=== PATIENT | male | born 1940 | race Caucasian/White ===

== ENCOUNTER 2017-11-06 12:01 | Inpatient (IN) | payer MEDICARE, BC ==
[2017-11-06] MEDS ORDERED: Ondansetron HCl/PF 4 MG/2 ML Vial ONE (12:46)
[2017-11-06] MEDS ORDERED: Morphine 4 MG/ML Carpuject ONE ×3 (12:46→16:51)
[2017-11-06 12:57] LABS: #Basophils 0.1 thou/uL (0.0-0.2); #Lymphocytes 1.6 thou/uL (1.20-3.40); #Monocytes 0.4 thou/uL (0.11-0.59); #Neutrophils 5.8 thou/uL (1.40-6.50); %Basophils 1.2 % (0.0-1.0); %Eosinophils 0.2 % (0.0-10.0); %Lymphocytes 19.8 % (21.0-51.0); %Monocytes 5.4 % (0.0-10.0); %Neutrophils 73.5 % (42.0-75.0); Hemoglobin 16.1 g/dL (14.0-18.0); Mean Corpuscular HGB CONC 33.5 g/dL (32.0-36.0); Mean Corpuscular Hemoglobin 30.1 pg (27.0-31.0); Mean Corpuscular Volume 89.9 fl (80.0-94.0); Platelet Count 134 thou/uL (130-400); RBC Distribution Width 11.4 % (11.5-14.5); Red Blood Cell (RBC) Count 5.36 mill/uL (4.70-6.10); White Blood Cell (WBC) Count 7.9 thou/uL (4.8-10.8)
[2017-11-06 13:16] LABS: ALT (SGPT) 15 U/L (8-55); AST (SGOT) 40 U/L (5-34); Albumin 4.3 g/dL (3.4-4.8); Alkaline Phosphatase 77 U/L (40-150); Anion Gap 20 mmol/L (10-20); BUN (Urea Nitrogen) 11 mg/dL (8.4-25.7); Bilirubin, Total 0.9 mg/dL (0.2-1.2); Calc. Creatinine Clearance 0 mL/min (70-130); Carbon Dioxide 20 mmol/L (23-31); Chloride 101 mmol/L (98-107); Estimated GFR-MDRD 78; Globulin 3.3 g/dL (2.4-3.5); Glucose 140 mg/dL (83-110); Lipase 18 U/L (8-78); Potassium 4.1 mmol/L (3.5-5.1); Protein, Total 7.6 g/dL (5.8-8.1); Sodium 137 mmol/L (136-145)
--- NOTE | 2017-11-06 14:54 | CT ---
ABDOMEN AND PELVIS CT NONCONTRAST: CLINICAL HISTORY: Sudden onset back pain. FINDINGS: Extensive soft tissue mass formation present within the retroperitoneum as well as within the iliac c hains right greater than left compatible with diffuse adenopathy, limited in assessment by noncontras t CT imaging. There is no urolithiasis or obstructive uropathy. There is vascular calcification. T here is mild volume loss at the left lung base. Osseous structures reveal a prominent compression de formity at the low thoracic spine, age-indeterminate. There is marked enlargement of the prostate gl and abutting the bladder base. Bilateral fat-containing inguinal hernias are present, more prominent on the left. Evaluation is otherwise limited on the basis of noncontrast technique. IMPRESSION: Extensive adenopathy likely related to lymphoma. Recommend appropriate clinical management and follo augustinp. POS: JOSIAH
[2017-11-06 16:44] LABS: Lactic Acid 0.8 mmol/L (0.5-2.2)
[2017-11-06 17:31] VITALS: BMI 22.4
[2017-11-06] MEDS ORDERED: HYDROcodone/Acetaminophen 5/325 mg Tablet PO PRN ×3 (17:55→19:43)
[2017-11-06] MEDS ORDERED: Sodium Chloride 0.9% 1,000 ML IV SCH (17:55)
[2017-11-06] MEDS ORDERED: Ondansetron ODT 4 MG TAB SL PRN ×2 (17:55→19:43)
[2017-11-06] MEDS ORDERED: Ondansetron HCl/PF 4 MG/2 ML Vial IVP PRN (17:55)
[2017-11-06] MEDS ORDERED: Senokot 8.6 MG TAB PO PRN (19:43)
[2017-11-06] MEDS ORDERED: Bisacodyl 5 MG TAB PO PRN (19:43)
[2017-11-06] MEDS ORDERED: Dextrose 50% Abboject 50 ML SYRINGE SLOW IVP PRN (21:09)
[2017-11-06] MEDS ORDERED: Dextrose 5% in Water 1,000 ML IV PRN (21:09)
[2017-11-06] MEDS: Famotidine 20 MG TAB PO SCH (23:10)
[2017-11-06] MEDS: Docusate 100 MG CAP PO SCH (23:10)
--- NOTE | 2017-11-07 00:04 | HP ---
DATE OF SERVICE: 11/06/2017 CHIEF COMPLAINT: Back pain and abdominal pain. HISTORY OF PRESENT ILLNESS: The patient is a 77-year-old male with a past medical history of hypertension, hyperlipidemia, and diabetes, who presented to the [facility] ER with a 2 -month history of worsening lower back pain and several days worth of worsening abdominal pain. The patient had been seen his primary care physician located in [place], [place], who had been treating his back pain conservatively and tried steroid injections, thinking that he pulled a muscle when lifting heavy objects. The back pain never improved and then he also developed constipation over that time and some left lower quadrant abdominal pain for which he sought care at the ER today. In the ER, the patient had a CT scan of the abdomen and pelvis, which demonstrated extensive adenopathy, likely rel ated to lymphoma. It was also noted that the patient had a compression fracture in the lower thoraci c spine. The patient has been admitted for pain control and further workup of this possible new lymp jean-pierre. On physical examination, the patient is mildly tender to palpation in left lower quadrant and tenderness over the lower back, but it was otherwise unremarkable. The patient's notes that he lost 15-20 pounds in the past several months. LABORATORY DATA: 1. CBC: WBC 7.9, hemoglobin 16.1, hematocrit 48.1, platelets 134. 2. CMP: Sodium 137, potassium 4.1, chloride 101, bicarb 20, BUN 11, creatinine 0.94, glucose 140, c alcium 11.0, total bilirubin 0.9, AST 40, ALT 15, alkaline phosphatase 77, total protein 7.6, albumin 4.3. 3. Lipase 18. 4. Lactic acid 2.6. ASSESSMENT AND PLAN: 1. Intractable pain secondary to compression fracture and malignancy: The patient will be given IV pain regimen overnight. The patient had good results with morphine that he was dosed with in the ER and we will likely continue this. 2. Suspected lymphoma: We will try to arrange for the patient to have a biopsy tomorrow or as soon as possible to help get a tissue diagnosis, and the patient will also need to see Oncology. 3. Compression fracture: We will consult Neurosurgery. I suspect he may need a TLSO brace. 4. Hypertension: Continue home medications. 5. Diabetes: Continue home medications. Please see Dr. Penelope Osborn's dictation for the full history and physical, assessment and plan. I hav e discussed the case in detail with her and agree with her documentation.
--- NOTE | 2017-11-07 02:42 | HP-2 ---
CODE STATUS: FULL. PRIMARY CARE PHYSICIAN: Dr. Asencio. ATTENDING: Dr. Camacho. RESIDENT: Dr. Penelope Osborn. HISTORIAN: Patient. CHIEF COMPLAINT: Abdominal pain. HISTORY OF PRESENT ILLNESS: Patient is a 77-year-old male with past medical history of diabetes, hypertension, hyperlipidemia, and chronic constipation and back pain worsening, who presented with acute onset of intermittent abdominal pain that lasted about 30 to 60 minutes in duration, was located in the left lower quadrant. No associated fever. Patient does have chronic history of constipation and back pain started about 2 months ago, patient had a lifting injury and then a mechanical fall a month later. reports that the last couple of days pain has been worsening. It is so severe that the patient is unable to get out of bed on his own and ambulate. Patient has been seen by Dr. Asencio, PCP for back pain and constipation. Back pain attributed to pulled muscle. Patient also seen by GI specialist for constipation. Patient has been treated with [id number] medications and with great results. Currently, not suffering from constipation. Last BM was 2 days ago. Patient denies melena or hematochezia. No family history of colon cancer. Patient was originally seen in [facility] ER where they did a CT of the abdomen, which showed extensive adenopathy, likely related to lymphoma and a compression fracture. In the ER, was given morphine for pain. PAST MEDICAL HISTORY: 1. Diabetes mellitus. 2. Hypertension. 3. Hyperlipidemia. 4. BPH. PAST SURGICAL HISTORY: Left nipple cyst removal and back cyst removal. ALLERGIES: No known drug allergies. MEDICATIONS: 1. Lisinopril 2.5 mg. 2. Metformin 500 mg daily. 3. Simvastatin 10 mg daily. 4. Tamsulosin 0.4 mg. FAMILY HISTORY: Dad with diabetes. SOCIAL HISTORY: Patient was a former smoker, quit in 1979. Reports alcohol use of 2 glasses of wine nightly, but lately with abdominal pain has since quit drinking and no drug use in the past. Patient is retired, lives at home. Baseline functional status is working and completing ADLs on his own. REVIEW OF SYSTEMS: A 12-point review of systems was performed and found to be positive for those mentioned in the HPI as well as a 15 to 20 pound weight loss over the last year, recent mild cough and congestion. No shortness of breath. No nasal congestion or sore throat. No fever, pain, and tenderness of the back. PHYSICAL EXAMINATION: VITAL SIGNS: Blood pressure 156/80, pulse 66, respiratory rate 18, T-max 97.7, pulse ox 98% on room air, current weight 75 kilograms. GENERAL: Patient is alert and oriented x4, in no acute distress. He has been appropriately interactive. EYES: PERRLA, EOMI. Conjunctivae within normal limits. ENT: Oropharynx within normal limits. NECK: Supple, without lymphadenopathy. No supraclavicular lymphadenopathy noted. CARDIOVASCULAR: Regular rate and rhythm. No murmurs or gallops. Radial pulses 2+. RESPIRATORY: Normal effort, no retractions, clear to auscultation bilaterally. ABDOMEN: Soft with tenderness in the left lower quadrant with hypoactive bowel sounds. No rebound, mild guarding. EXTREMITIES: No clubbing, cyanosis, or edema. MUSCULOSKELETAL: Structure within normal limits. Tone within normal limits. BACK: With tenderness to palpation in the lumbar vertebral area around L3-L4. SKIN: Warm and dry. NEUROLOGIC: No focal deficits. GCS 15. PSYCHIATRIC: Appropriate. LABORATORY DATA: CBC: White blood cell count 7.9, hemoglobin 16.1, hematocrit 48.1, platelets 134. Chemistries: Sodium 137, potassium 4.1, chloride 101, bicarb 20, BUN 11, creatinine 0.94, glucose 140, calcium 11.0, total protein 7.6 , albumin 4.3, AST 40, ALT 15, alkaline phosphatase 77, total bilirubin 0.9. Lactic acid 2.6, which down trended to 0.8. Lipase 18. IMAGING: CT of abdomen showed extensive adenopathy, likely related to lymphoma. No acute obstruction noted. ASSESSMENT AND PLAN: 1. Suspected lymphoma - CT finding suggestive of extensive adenopathy. We will need biopsy for confirmation of diagnosis. We will consult IR for biopsy and official diagnosis. Patient with weight loss, constipation, hypercalcemia all of these things are added to the picture of possible neoplastic process. We will get SPEP and UPEP to consider multiple myeloma with fracture. We will give Fisher for pain control and consider morphine for breakthrough pain control. Plan to consult Oncology once diagnosis is made. This was discussed with family. 2. Back pain secondary to compression fracture, unsure etiology. The patient with recent trauma, which could be likely source for fracture, although concern for pathologic fracture. We will consult Neurosurgery and give pain meds. PT and OT if able to tolerate. 3. Hypercalcemia, likely secondary to #1. Patient's calcium actually just above normal range. 4. Diabetes mellitus. We will continue home metformin and at bedtime, Accu- Cheks and mild sliding scale insulin for uncontrolled blood sugars, and a diabetic diet. 5. Benign prostatic hypertrophy. We will continue home tamsulosin. 6. Hyperlipidemia. We will continue home simvastatin. 7. Constipation. We will give MiraLax daily, Colace b.i.d., Metamucil daily, and Senna p.r.n., likely constipation associated with extensive adenopathy. Encourage p.o. intake for hydration. DISPOSITION LENGTH OF HOSPITAL STAY: 2 to 3 days. Symptomatic medications will be provided. History and physical exam as well as management discussed with Dr. Piedda Camacho. RYAN
[2017-11-07] MEDS: HYDROcodone/Acetaminophen 5/325 mg Tablet PO PRN ×3 (03:42→14:59)
[2017-11-07 06:08] LABS: #Basophils 0.1 thou/uL (0.0-0.2); #Eosinphils 0.1 thou/uL (0.0-0.7); #Lymphocytes 1.9 thou/uL (1.20-3.40); #Monocytes 0.5 thou/uL (0.11-0.59); %Basophils 0.9 % (0.0-1.0); %Eosinophils 2.2 % (0.0-10.0); %Monocytes 8.1 % (0.0-10.0); %Neutrophils 59.9 % (42.0-75.0); Hemoglobin 13.3 g/dL (14.0-18.0); Mean Corpuscular HGB CONC 32.5 g/dL (32.0-36.0); Mean Corpuscular Hemoglobin 31.5 pg (27.0-31.0); Mean Corpuscular Volume 96.9 fl (80.0-94.0); Mean Platelet Volume 6.3 fL (7.4-10.4); PLT Morphology Comment Appears Decreased; Platelet Count 119 thou/uL (130-400); RBC Distribution Width 12.1 % (11.5-14.5); Red Blood Cell (RBC) Count 4.22 mill/uL (4.70-6.10); White Blood Cell (WBC) Count 6.6 thou/uL (4.8-10.8)
--- NOTE | 2017-11-07 06:09 | PDOC.FM ---
- Subjective Subjective: Mr. Reeder is feeling okay this morning, he is still constipated and has not had a BM in 3 days. His back pain is more controlled with the pain medications. He denies fever, chest pain, dyspnea. - Objective MAR Reviewed: Yes Vital Signs & Weight: Vital Signs (12 hours) Temp Pulse Resp BP Pulse Ox 11/07/17 04:43 97.6 F 59 L 17 155/85 H 96 11/07/17 00:54 97.9 F 59 L 16 100/63 95 11/06/17 21:47 97.9 F 60 16 134/75 94 L 11/06/17 20:00 97.9 F 60 16 94 L Weight Weight 75 kg I&O: 11/05/17 11/06/17 11/07/17 06:59 06:59 06:59 Intake Total 170 Balance 170 Result Diagrams: 11/07/17 05:14 11/07/17 05:14 <Jj Kelley - Last Filed: 11/07/17 07:37> - Objective Vital Signs & Weight: Vital Signs (12 hours) Temp Pulse Resp BP Pulse Ox 11/07/17 15:22 97.5 F L 70 16 171/92 H 96 11/07/17 12:05 97.9 F 62 16 146/77 H 95 11/07/17 08:00 98.1 F 54 L 16 107/66 96 11/07/17 04:43 97.6 F 59 L 17 155/85 H 96 Weight Weight 75 kg I&O: 11/06/17 11/07/17 11/08/17 06:59 06:59 06:59 Intake Total 1770 Balance 1770 Result Diagrams: 11/07/17 05:14 11/07/17 05:14 <Piedad Camacho - Last Filed: 11/07/17 16:41> Phys Exam - Physical Examination Constitutional: NAD HEENT: moist MMs, sclera anicteric Neck: no JVD, supple, full ROM Respiratory: no wheezing, no rales, no rhonchi, clear to auscultation bilateral Cardiovascular: RRR, no significant murmur, no rub Gastrointestinal: soft, non-tender, positive bowel sounds distended Musculoskeletal: no edema, pulses present Neurological: non-focal, normal sensation, moves all 4 limbs Psychiatric: normal affect, A&O x 3 <Warren,Jj - Last Filed: 11/07/17 07:37> Dx/Plan (1) Lymphoma Status: Suspected (2) Compression fracture Code(s): NIK1549 - Status: Acute (3) Hypercalcemia Code(s): E83.52 - HYPERCALCEMIA Status: Acute (4) Type 2 diabetes mellitus Status: Chronic (5) BPH (benign prostatic hyperplasia) Code(s): N40.0 - BENIGN PROSTATIC HYPERPLASIA WITHOUT LOWER URINRY TRACT SYMP Status: Chronic (6) Hyperlipidemia Code(s): E78.5 - HYPERLIPIDEMIA, UNSPECIFIED Status: Chronic (7) Constipation Code(s): K59.00 - CONSTIPATION, UNSPECIFIED Status: Acute - Plan Plan: 1) Suspected Lymphoma: CT finding suggestive of extensive adenopathy, weight loss, constipation, hypercalcemia We will need biopsy for confirmation of diagnosis, Consult IR this morning Also check UPEP, SPEP [place] for pain control Consult Oncology 2) Newly Diagnosed Compression Fracture: causing back pain, has been managed conservatively OP with meds and injections -Consult neurosurgery, appreciate recommendations -PT/OT if patient can tolerate -pain control 3) Hypercalcemia: likely secondary to #1 -check UPEP, SPEP 4) T2DM: Cont home metformin, Accuchecks, Mild SSI 5) BPH: Cont home tamsulosin 6) HLD: come home simvastatin 7) Constipation: Miralax daily, colace bid, metamucil daily, senna prn <Jj Kelley - Last Filed: 11/07/17 07:37> Attending Addendum - Attending Addendum I personally evaluated the patient and discussed the management with Dr. Kelley. I agree with the History, Examination, Assessment and Plan documented above with any addition or exceptions noted below. Patient will need further imaging of his back. Neurosurgery has been consulted. Oncology will also be consulted. Patient will need a biopsy to determine etiology of suspected malignancy. Continue pain medications. Will adjust bowel regimen to help with constipation. <Piedad Camacho - Last Filed: 11/07/17 16:41>
[2017-11-07 06:23] LABS: Anion Gap 12 mmol/L (10-20); BUN (Urea Nitrogen) 14 mg/dL (8.4-25.7); Calc. Creatinine Clearance 74 mL/min (70-130); Calcium 9.6 mg/dL (7.8-10.44); Carbon Dioxide 27 mmol/L (23-31); Chloride 102 mmol/L (98-107); Estimated GFR-MDRD 80; Glucose 114 mg/dL (83-110); Potassium 4.1 mmol/L (3.5-5.1); Sodium 137 mmol/L (136-145)
[2017-11-07] MEDS ORDERED: Gadobenate Dimeglumine 529 MG/1 ML (20ML VIAL) ONE (06:31)
[2017-11-07] MEDS ORDERED: GARLIC PO SCH (09:00)
[2017-11-07] MEDS: Calcium/Multivitamins W-Iron 1 TAB TAB PO SCH (09:14)
[2017-11-07] MEDS: Lactinex Tablet PO SCH (09:15)
[2017-11-07] MEDS: Fish Oil 1,000 MG CAP PO SCH (09:15)
[2017-11-07] MEDS: Lisinopril 2.5 MG TAB PO SCH (09:15)
[2017-11-07] MEDS: metFORMIN 500 MG TAB PO SCH (09:15)
[2017-11-07] MEDS: Famotidine 20 MG TAB PO SCH ×2 (09:16→22:24)
[2017-11-07] MEDS: Tamsulosin HCl 0.4 MG CAP PO SCH (09:16)
[2017-11-07] MEDS: Enoxaparin Sodium 40 MG/0.4 ML SYRINGE SC SCH (09:16)
[2017-11-07] MEDS: Polyethylene Glycol 3350 17 GM Packet PO SCH (09:16)
[2017-11-07] MEDS: Docusate 100 MG CAP PO SCH ×2 (09:16→22:24)
[2017-11-07] MEDS: Metamucil PACK PO SCH (09:16)
[2017-11-07] MEDS ORDERED: Bisacodyl 10 MG SUPP PR PRN (09:23)
[2017-11-07] MEDS ORDERED: Bisacodyl 10 MG SUPP PR SCH (09:30)
--- NOTE | 2017-11-07 13:29 | CON ---
DATE OF CONSULTATION: 11/07/2017 REASON FOR CONSULTATION: Back pain and retroperitoneal adenopathy. HISTORY OF PRESENT ILLNESS: The patient is a 77-year-old man with a 2-month history of progressively severe mid to low back pain with no history of significant trauma. Conservative measures including injections have not shown improvement. He has a good appetite, but has lost 15-20 pounds in the past few months. He sought attention in the emergency room and imaging showed a compression fracture of unclear age in the low thoracic spine. In addition, there was prominent retroperitoneal, pelvic, and iliac adenopathy measuring up to 6-7 cm. The prostate was markedly enlarged. There was no evidence of sclerotic metastasis on the CT screening study. He is admitted now for pain control and further evaluation of the above findings. ALLERGIES: None. MEDICATIONS: Lisinopril, metformin, simvastatin, and tamsulosin. PAST MEDICAL HISTORY: There is a history of BPH, hyperlipidemia, hypertension, and diabetes mellitus . Regarding the BPH, he has had PSAs done in the past and the most recent is 6.1 according to the magdalene camacho. PAST SURGICAL HISTORY: The patient has undergone 2 cyst removals in the past, but no major surgery. SOCIAL HISTORY: The patient is a former smoker, discontinued tobacco in 1979. He has wine daily, bu t does not drink excessively. He is and lives at home. He is completely independent. REVIEW OF SYSTEMS: Except as mentioned in the history of present illness, he denies significant card iopulmonary, GI, , musculoskeletal or neurological complaints. He does have rather significant obs tructive uropathic symptoms. PHYSICAL EXAMINATION: VITAL SIGNS: Temperature 98.1, pulse 54 and regular, respirations 16 and blood pressure 107/66. GENERAL: The patient is a well-developed and well-nourished man in mild distress, complaining of brionna k pain, in need of additional medication. He is alert, oriented and cooperative. HEENT: The extraocular movements are intact. Pupils are equal, round, and reactive to light. NECK: Supple. LUNGS: Clear. CARDIOVASCULAR: Regular rate and rhythm without murmur, rub, gallop or click. ABDOMEN: No tenderness, organomegaly, masses, bruits or ascites. EXTREMITIES: No clubbing, cyanosis or edema. SKIN: Normal. LYMPH: No adenopathy. MUSCULOSKELETAL: No active arthritis. NEUROLOGIC: No focal findings and the cranial nerves II-XII are grossly intact. RECTAL: The rectal exam is limited somewhat by positioning of the patient and some back pain. Howev er, there is at least one suspicious nodule in the right lobe of the prostate, but I could not techni lorne examine the entire gland. LABORATORY DATA: White blood cell count 6.6, hemoglobin 13.3, and platelet count 119,000. Chemistri es showed normal electrolytes and a creatinine of 0.92. The calcium was elevated at 11 on admission. However, today, the calcium is 9.6. Liver function studies are normal. IMAGING DATA: See history of present illness. IMPRESSION: 1. Progressive, atraumatic low back pain over a 2-month period. 2. Compression deformity of the low thoracic spine of unclear etiology. 3. Retroperitoneal, pelvic, and iliac adenopathy, worrisome for malignancy. 4. Significant prostatism with abnormal digital rectal examination. RECOMMENDATIONS: Diagnostic possibilities at present include metastatic prostate carcinoma or lympho ma as the most likely explanations for the findings. A PSA will be obtained. I have discussed the c ase with Dr. Pedraza, Radiology, and a CT-guided biopsy of the adenopathy is technically feasible and will be ordered. An MRI of the thoracic and lumbar spine will be performed. Finally, a bone scan w ill be ordered. I agree with continued pain control. Thanks very much for allowing me to provide my recommendations.
[2017-11-07] MEDS ORDERED: Dexamethasone 10 MG/ML VIAL SLOW IVP SCH (17:30)
[2017-11-07] MEDS ORDERED: Dexamethasone 4 mg/ml Vial SLOW IVP SCH (17:30)
[2017-11-07] MEDS: Dexamethasone 4 mg/ml Vial SLOW IVP SCH ×2 (17:52→17:53)
--- NOTE | 2017-11-07 18:56 | RAD ---
THORACIC SPINE TWO VIEWS: History: Compression fracture. Comparison: Thoracic spine MRI same day. FINDINGS: Similar appearance to the T11 compression fracture, pathologic, with retropulsion. There are abnormal lytic foci throughout the thoracic spine. IMPRESSION: T11 compression fracture with retropulsion similar to the MRI. POS: JOSIAH
--- NOTE | 2017-11-07 18:59 | RAD ---
LUMBAR SPINE THREE VIEWS: History: Compression fracture. Comparison: CT and MRI FINDINGS: T11 compression fracture is similar. Chronic degenerative changes of the lumbar spine. Better investi gated on the MRI report. IMPRESSION: T11 compression fracture. POS: JOSIAH
--- NOTE | 2017-11-07 19:52 | CON ---
DATE OF CONSULTATION: 11/07/2017 A 50-minute initial patient consult in which greater than 50% of the exam was spent in counseling and coordinating patient's care. Remainder of the exam was spent in review of patient's medical records and appropriate imaging studies on patient Kale Reeder. CHIEF COMPLAINT: Low back pain. HISTORY OF PRESENT ILLNESS: Mr. Reeder is a pleasant 77-year-old male who presented to [facility] with complaint of acute abdominal pain. He does state over the past 2-3 months he has been experiencing low back pain which has become worse over the past 2-3 weeks. He states that he does not have a history of falls, although does note tripping a few weeks ago when he was attempting to quickly get to the bathroom in the busy parking line. He denies any weakness into the legs or leg pain. The patient has multiple medical issues and the Family Medicine physicians are currently working up the possibility of cancer workup. In regards to the patient's low back pain, lumbar spine CT was reviewed that shows age indeterminate L1 burst fracture. PHYSICAL EXAMINATION: The patient is awake, alert, and appropriate. His GCS currently is 15. He does appear to be comfortable and states that pain medications are helping to improve his pain. He states his pain is worse with changes in position in bed. He has full strength in the bilateral lower extremities with intact sensation to light touch throughout. He also has full strength in the bilateral upper extremities and he has no worrisome myelopathic features on exam including negative clonus. Hogan's is negative bilaterally and no increased tone. He does have some mild to moderate tenderness to palpation along the midline of the thoracic lumbar spine area. IMPRESSION DIAGNOSIS: Age-indeterminate L1 burst fracture. PLAN: I have discussed the patient's case and imaging with Dr. Mccurdy. At this time, we will maximize the patient's pain control and also order Clamshell TLSO brace to be worn at any time the patient is out of bed. We will defer further oncology/medical workup to our medical colleagues and agree with more imaging studies. At this time, the patient does not require neurosurgical intervention which is certainly good news for the patient and he is pleased with this plan so far. I would like him to work with therapies as tolerated once he is fitted for his brace. Ample opportunity was given to the patient to discuss his questions and concerns and again, he is pleased with this plan. Please call with any changes in the patient's neurologic status, otherwise we will check back once further testing is completed. MTDD
[2017-11-07] MEDS: Simvastatin 5 MG TAB PO SCH (22:24)
[2017-11-08] MEDS: Dexamethasone 4 mg/ml Vial SLOW IVP SCH ×3 (02:56→17:42)
[2017-11-08 06:06] LABS: #Lymphocytes 0.7 thou/uL (1.20-3.40); #Monocytes 0.1 thou/uL (0.11-0.59); #Neutrophils 3.5 thou/uL (1.40-6.50); %Eosinophils 0.2 % (0.0-10.0); %Lymphocytes 15.2 % (21.0-51.0); %Monocytes 2.9 % (0.0-10.0); %Neutrophils 81.7 % (42.0-75.0); Anion Gap 12 mmol/L (10-20); BUN (Urea Nitrogen) 12 mg/dL (8.4-25.7); Calc. Creatinine Clearance 90 mL/min (70-130); Calcium 9.4 mg/dL (7.8-10.44); Carbon Dioxide 24 mmol/L (23-31); Chloride 103 mmol/L (98-107); Estimated GFR-MDRD Greater than 90; Glucose 159 mg/dL (83-110); Hemoglobin 13.2 g/dL (14.0-18.0); Mean Corpuscular HGB CONC 32.7 g/dL (32.0-36.0); Mean Corpuscular Hemoglobin 31.4 pg (27.0-31.0); Mean Platelet Volume 6.4 fL (7.4-10.4); PLT Morphology Comment Appears Decreased; Platelet Count 105 thou/uL (130-400); Potassium 4.1 mmol/L (3.5-5.1); RBC Distribution Width 11.9 % (11.5-14.5); Red Blood Cell (RBC) Count 4.22 mill/uL (4.70-6.10); Sodium 135 mmol/L (136-145); White Blood Cell (WBC) Count 4.3 thou/uL (4.8-10.8)
--- NOTE | 2017-11-08 06:12 | PDOC.FM ---
- Subjective Subjective: Mr. Reeder is doing well this morning. States that his back pain is controlled with medications and TLSO brace. He has no complaints this morning. He is scheduled for CT guided lymph node biopsy today. - Objective MAR Reviewed: Yes Vital Signs & Weight: Vital Signs (12 hours) Temp Pulse Resp BP Pulse Ox 11/08/17 00:27 97.9 F 60 18 119/70 95 11/07/17 20:55 98.2 F 62 16 147/87 H 97 11/07/17 20:00 97.9 F 60 18 Weight Weight 75 kg I&O: 11/06/17 11/07/17 11/08/17 06:59 06:59 06:59 Intake Total 1770 500 Output Total 900 Balance 1770 -400 Result Diagrams: 11/08/17 05:12 11/08/17 05:12 <Jj Kelley - Last Filed: 11/08/17 08:34> - Objective Vital Signs & Weight: Vital Signs (12 hours) Temp Pulse Resp BP Pulse Ox 11/08/17 08:00 98.1 F 60 18 150/76 H 94 L 11/08/17 00:27 97.9 F 60 18 119/70 95 Weight Weight 75 kg I&O: 11/07/17 11/08/17 11/09/17 06:59 06:59 06:59 Intake Total 2083 512 6939 Output Total 900 Balance 1770 -400 1380 Result Diagrams: 11/08/17 05:12 11/08/17 05:12 <Demetrius Ritchie - Last Filed: 11/08/17 11:57> Phys Exam - Physical Examination Constitutional: NAD HEENT: moist MMs, sclera anicteric Neck: no JVD, supple, full ROM Respiratory: no wheezing, no rales, no rhonchi, clear to auscultation bilateral Cardiovascular: RRR, no significant murmur Gastrointestinal: soft, non-tender mild distention Musculoskeletal: no edema, pulses present Neurological: non-focal, normal sensation, moves all 4 limbs Psychiatric: normal affect, A&O x 3 <Jj Kelley - Last Filed: 11/08/17 08:34> Dx/Plan (1) Lymphoma Status: Suspected (2) Compression fracture Code(s): [id number] - Status: Acute (3) Hypercalcemia Code(s): E83.52 - HYPERCALCEMIA Status: Acute (4) Type 2 diabetes mellitus Status: Chronic (5) BPH (benign prostatic hyperplasia) Code(s): N40.0 - BENIGN PROSTATIC HYPERPLASIA WITHOUT LOWER URINRY TRACT SYMP Status: Chronic (6) Hyperlipidemia Code(s): E78.5 - HYPERLIPIDEMIA, UNSPECIFIED Status: Chronic (7) Constipation Code(s): K59.00 - CONSTIPATION, UNSPECIFIED Status: Acute - Plan Plan: 1) Suspected Lymphoma: CT finding suggestive of extensive adenopathy, weight loss, constipation, hypercalcemia We will need biopsy for confirmation of diagnosis Also check UPEP, SPEP [place] for pain control Consulted Oncology yesterday, Dr. Laws, appreciate recommendations Probable prostate carcinoma with metastasis CT guided lymph node biopsy scheduled for today, as well as bone scan. 2) Newly Diagnosed Compression Fracture: causing back pain, has been managed conservatively OP with meds and injections -Spine Xray and MRI confirm T11 fracture with retropulsion -Consulted neurosurgery yesterday, started patient on clamshell TLSO brace -PT/OT if patient can tolerate -pain control 3) Hypercalcemia: likely secondary to #1 -check UPEP, SPEP 4) T2DM: Cont home metformin, Accuchecks, Mild SSI 5) BPH: Cont home tamsulosin 6) HLD: come home simvastatin 7) Constipation: Miralax daily, colace bid, metamucil daily, senna prn, added [place] Dulcolax yesterday <Jj Kelley - Last Filed: 11/08/17 08:34> Attending Addendum - Attending Addendum I personally evaluated the patient and discussed the management with Dr. Kelley. I agree with the History, Examination, Assessment and Plan documented above with any addition or exceptions noted below. Patient pain well controlled at this time. He is undergoing CT guided biopsy at this time for tissue diagnosis of his likely metastatic prostate adenocarcinoma versus lymphoma. MRI final reads pending to evaluate for spinal osteolytic lesions and bone scan to help with staging. Appreciate Onc recommendations. Calcium level normal at this time. <Demetrius Ritchie - Last Filed: 11/08/17 11:57>
--- NOTE | 2017-11-08 07:40 | MRI ---
LUMBAR SPINE MRI WITH AND WITHOUT CONTRAST: Indication: Abnormal findings on CT exam including compression fracture with extensive adenopathy. Im aging findings are concerning for lymphoma with possible osseous involvement. FINDINGS: There is diffuse marrow heterogeneity with multifocal soft tissue marrow lesions throughout the image d lumbar spine and sacrum with evidence of pathologic enhancement. The conus medullaris terminates at the L1-2 level. There is partial visualization of T11 marrow abnormality, incompletely assessed on t he basis of this exam. Extensive adenopathy incidentally noted as is depicted on preceding CT exam. IMPRESSION: Extensive abnormal signal and enhancement of the regional marrow, compatible with diffuse osseous met astatic disease. Notification provided via telephone to patient's physician, Goyo Laws at 1710 hours on 11-07-17. POS: [facility]
--- NOTE | 2017-11-08 07:41 | MRI ---
THORACIC SPINE MRI WITH AND WITHOUT CONTRAST: Indication: Abnormal CT findings including adenopathy and compression fracture concerning for a patho logic compression fracture related to metastatic disease. FINDINGS: There is a severe compression fracture of T11 with enhancing soft tissue component and retropulsion o f bone producing mass effect upon the thoracic spinal cord at this level, with moderate cord compromi se. There is diffuse abnormal marrow signal with enhancement compatible with diffuse osseous metastat ic disease throughout the thoracic spine. Cord signal alteration of the lower thoracic spine likely r elated to edema from the above described compression of the spinal cord related to T11 pathologic com pression fracture. Incidental note of surrounding adenopathy which is depicted on preceding CT exam. IMPRESSION: Diffuse signal alteration and enhancement of the regional marrow related to metastatic disease, with resultant pathologic compression fracture of T11 and severe cord compromise related to retropulsion o f bone. Cord signal abnormality is also present at this region, likely related to compressive edema. Notification provided via telephone to patient's physician Goyo Laws at 1710 hours on 11-07-17. POS: [facility]
[2017-11-08] MEDS: metFORMIN 500 MG TAB PO SCH (07:45)
[2017-11-08] MEDS: HYDROcodone/Acetaminophen 5/325 mg Tablet PO PRN ×3 (07:51→20:51)
[2017-11-08] MEDS: Enoxaparin Sodium 40 MG/0.4 ML SYRINGE SC SCH (07:53)
[2017-11-08] MEDS: Fish Oil 1,000 MG CAP PO SCH (07:53)
[2017-11-08 07:58] LABS: INR-International Normal Ratio 1.2; Prothrombin Time 15.5 SEC (12.0-14.7)
[2017-11-08 07:59] LABS: PTT 36.2 SEC (22.9-36.1)
--- NOTE | 2017-11-08 09:00 | PRG ---
DATE OF SERVICE: 11/08/2017 This is a 30 minute initial hospital visit note in which 30 minutes were spent in review of the imagi ng, record, evaluation and examination of the patient, and formulation of a plan. Greater than 50% w as spent counseling on Kale Reeder. CHIEF COMPLAINT: Abdominal pain with an infiltrative mass in the retroperitoneum, diffuse metastatic disease throughout the spine. HISTORY OF PRESENT ILLNESS: I reviewed the notes of my colleague, Toño Christian PA-C, and agree wi th its content. I also spoke to Dr. Laws. Mr. Reeder is a 77-year-old man who for years had pain i n the back, since September this has been worse. His abdominal pain began to get worse yesterday. CT scan of the abdomen demonstrated concern of a diffuse infiltrative retroperitoneal process with lymp hadenopathy and possible involvement of the spine. We were consulted and recommended imaging of the spine. This was done and demonstrates retropulsion of fragment at T11 with diffuse metastatic diseas e throughout the thoracic and lumbar spine. Dr. Laws thinks this could be prostate cancer. Never theless, the cord is draped over this area of the retropulsed fragment, he has adequate room dorsally . Further the patient has not been clinically myelopathic. A brace was obtained. He is scheduled f or CT guided needle biopsy today. PHYSICAL EXAMINATION: On exam, he is alert, appropriate. He has no neurological deficits throughout his lower extremity myotomes, or sensory, nor does he have any evidence of clonus or increased tone. He is in a well-fitting brace. IMPRESSION AND PLAN: I let the patient know the concern of diffuse metastatic disease. I let Dr. Roscoe vazquez know given that patient has multifocal metastatic disease, any surgery he would require decompr ession and stabilization, requiring screws to be placed into metastatic infiltrated bone which would have little to no effective purchase and likely the chance of hardware failure and progressive defor mity would be profound. As such, I would not recommend surgery on this patient, but rather palliativ e treatment. The brace may be worn indefinitely, particular whenever the patient is out of bed, I arredondo spect this will help with his pain. DIAGNOSES: Diffuse metastatic disease with a pathological fracture and spinal cord compression.
[2017-11-08] MEDS: Lactinex Tablet PO SCH (09:54)
[2017-11-08] MEDS: Lisinopril 2.5 MG TAB PO SCH (09:54)
[2017-11-08] MEDS: Tamsulosin HCl 0.4 MG CAP PO SCH (09:54)
[2017-11-08] MEDS: Calcium/Multivitamins W-Iron 1 TAB TAB PO SCH (09:55)
[2017-11-08] MEDS: Famotidine 20 MG TAB PO SCH ×2 (09:55→20:51)
[2017-11-08] MEDS: Docusate 100 MG CAP PO SCH ×2 (09:55→20:51)
[2017-11-08] MEDS: Metamucil PACK PO SCH (11:17)
[2017-11-08] MEDS: Polyethylene Glycol 3350 17 GM Packet PO SCH (11:17)
--- NOTE | 2017-11-08 12:26 | ULT ---
ULTRASOUND GUIDED FINE NEEDLE ASPIRATION AND CORE BIOPSY OF RIGHT INGUINAL LYMPHADENOPATHY: DATE: 11/08/17. History Recent CT examination demonstrated extensive lymphadenopathy concerning for a lymphoma/malignancy. FINDINGS: Informed consent for ultrasound-guided fine needle aspiration and core biopsy of right inguinal lymph adenopathy obtained prior to the procedure. Preprocedural imaging demonstrates bulky right inguinal lymphadenopathy. The skin overlying this lesion was prepped and draped in normal sterile fashion and anesthetized with 1% buffered Lidocaine. With direct sonographic guidance, two 18-gauge fine needle aspirations were obtained of the enlarged right inguinal lymph node. Subsequently, an 18-gauge core biopsy was obtained. The material was given to the pathologist at the bedside who deemed the specimen adequate and reporte d diagnostic tissue. The patient tolerated the procedure well. Postprocedural imaging demonstrates no evidence for hemorr dal[place]. IMPRESSION: Successful ultrasound-guided fine needle aspiration and core biopsy of right inguinal lymphadenopathy . POS: [facility]
--- NOTE | 2017-11-08 12:44 | CON ---
DATE OF CONSULTATION: 11/08/2017 REASON FOR CONSULTATION: Mr. Reeder is a 77-year-old gentleman who appears to have been diagnosed with a clinical stage IV, T2B N1 M1 prostate carcinoma with impending spinal cord compression. HISTORY OF PRESENT ILLNESS: Mr. Reeder reports that he has been having some mid to lower back pain for at least 6 months. This has been worsening. In September, he was lifting a 50 pound bag of dear fee d and felt that he strained his back and it was worsening. The pain continues to progress such that he could not get comfortable. This weekend, he presented to the emergency room for evaluation. Ther e, he had a CT scan of the abdomen and pelvis that suggested retroperitoneal and pelvic adenopathy an d enlarged prostate. He also had a compression fracture. He was admitted to the hospital for workup and evaluation. Since being in the hospital, he underwent an MRI of the thoracic and lumbar spine. This showed what appeared to be diffuse metastatic disease throughout the thoracic and lumbar spine. At T11, he had a compression fracture with retropulsion of disease and compression of the spinal co rd. There was felt to be some edema of the spinal cord. He has been given pain medicine and his lenny n is much improved since his hospitalization. Neurologically, he was intact. He was started on dexa methasone. He was seen by Neurosurgery who felt that surgery was not warranted at this time. Plan i s for him to undergo biopsy sometime today. He was seen by Dr. Laws who performed a rectal exam a nd felt a nodule on the right side of his prostate. PSA was obtained which was elevated at 14.18. I have been asked to see the patient by Dr. Laws to discuss his options for treatment. Presently, he denies any leg weakness or numbness. He had some constipation in the past, although valiente d been on medication and had his constipation under control. However, his reports that he has n ot had a bowel movement for the last several days. His urinary stream has been slow for at least the last 3-4 years. Apparently, saw an urologist in [place] 5-6 years ago and was started on Flomax. H suraj has nocturia x2 to 3 episodes per night. He does report impotence for the past 4-5 years with no e jaculate being informed. He has had a 20 pound weight loss in the past 6 months. He has been eating reasonable and feels some of the weight loss may be related to dietary changes because of his diabet es. He denies any other areas of pain at the present time and voices no other complaints. PAST MEDICAL HISTORY: 1. Hypertension in the past which has not required medication since losing weight. 2. Diabetes. 3. History of a benign tumor removed from the left breast/chest area. 4. Status post pilonidal cyst removal. 5. BPH. 6. He denies other medical or surgical problems. MEDICATIONS: Flomax, simvastatin, senna, metformin, lisinopril, [place], and dexamethasone. ALLERGIES: No known medical allergies. SOCIAL HISTORY: The patient lives with his in [place], [place]. He worked for multiple place s, but did retire from [employer]. He has no cigarette use since 1979. Prior to that, he smoked a pack pe r day at times. He drinks approximately 2 alcoholic beverages per day. He is accompanied in his j carlos m by his . FAMILY HISTORY: Negative for malignancy. His father from a stroke at age 86. His mother at age 92, the cause of which is unknown to him. REVIEW OF SYSTEMS: Twelve-point review of systems was performed and is otherwise negative. PHYSICAL EXAMINATION: VITAL SIGNS: Height 6 feet, weight 165 pounds, blood pressure is 119/70, pulse 60, respirations are 18, temperature is 97.9, O2 saturation is 95%. GENERAL: He is alert and oriented and in no apparent distress. He is well-developed and well-nouris hed. Karnofsky performance status is 80%. EYES: Pupils equal, round, reactive to light. Extraocular movements are intact. ENT: Oral cavity and oropharynx normal without lesion or erythema. Palate elevates symmetrically. Gingiva is intact. NECK: Supple, without cervical or supraclavicular adenopathy. No thyromegaly. Larynx is midline. LUNGS: Breathing nonlabored. Clear to auscultation and percussion. CARDIOVASCULAR: Heart regular rate and rhythm without murmur. MUSCULOSKELETAL: No lower extremity edema. Radial and pedal pulses are good. BACK: Reveals subjective area of tenderness to be in the lower thoracic spine area. LYMPHATIC: No axillary or inguinal adenopathy. EXTREMITIES: Without cyanosis or clubbing. ABDOMEN: Soft, nontender, nondistended, without mass or hepatosplenomegaly. Liver percusses to norm al size. Bowel sounds present. RECTAL: Examination was deferred. SKIN: Without rash or purpura. NEUROLOGIC: Cranial nerves II-XII grossly intact. Motor strength is 5/5 in both upper and lower ext remities in all muscle groups tested. Reflexes are normal and symmetrical. Gait is normal. LABORATORY DATA: PSA was elevated at 14.18. Initial electrolytes showed calcium of 11.0. With IV f luids, this reduced to normal at 9.4. CBC today revealed white blood cell count of 4300 with hemoglo bin of 13.2, hematocrit of 40.5, and platelet count 105,000. RADIOLOGIC: CT scan of the abdomen and pelvis which was done on a renal stone protocol and therefore without contrast was personally reviewed. He does not have hydronephrosis. He has a fairly sizable retroperitoneal and pelvic lymphadenopathy, especially on the right side. His prostate is markedly enlarged. He did have a compression fracture. MRI of the lumbar and thoracic spine was personally r liangwed also. This shows what appears to be diffuse metastatic disease throughout the lumbar and tho racic spine. He does have compression fracture at T11 with retropulsion and impingement on the spina l cord at T11. ASSESSMENT: Mr. Reeder is a 77-year-old gentleman who has a likely clinical diagnosis of a stage IV, T 2 N1 M1 prostate carcinoma. I suspect this will likely be an adenocarcinoma of the prostate. Biopsy is currently pending. Other possibilities would be a lymphoma, although I think most likely this is going to be prostate cancer given the appearance of his prostate on CT scan as well as his pelvic an d retroperitoneal adenopathy and diffuse bone metastasis in the spine. He does have a bone scan that is pending. PLAN: I agree that we should obtain tissue diagnosis. Biopsy is scheduled for later today. I also agree with initiation of dexamethasone. He has been seen by Neurosurgery, who did not feel that surg sarah was warranted at this time. I will discuss the case with Dr. Laws. We could consider going o n and starting Casodex while we are waiting on the biopsy. This is because if this is confirmed to b e metastatic prostate cancer, then the mainstay of his treatment would be with Lupron. He would need to be initiated on Casodex to block any flare of testosterone from his Lupron therapy. If the diagn osis turns out to be a lymphoma, we will discontinue the casted. This will allow us to be already tr eating his prostate cancer while we are waiting on the biopsy. I did discuss this with Mr. Streeter. We discussed potential side effects of Casodex including gynecomastia and fatigue. He appears to be agr eeable with that. Again, if this diagnosis turns out to be something other than prostate cancer, we can discontinue the Casodex. I explained to Mr. Reeder the importance of initiating therapy very timel y because of his impending spinal cord compression. Presently, he is neurologically intact. I think he is likely going to require radiation therapy unless this turns out to be lymphoma. Likely we paige l need to initiate radiation therapy to the T11 vertebral body area. The logistics of radiation as w ell as the benefits and risks of treatment to this area were discussed. Side effects would include b ut not be limited to skin reaction, fatigue, lower blood counts, difficulty or pain with swallowing, nausea, vomiting, and small risk of damage to his intestines or other structures which received radia tion therapy. We will try to get the biopsy done soon so that we can initiate the radiation therapy soon if indicated. Time was taken to answer all of their questions regarding the treatment options. He is agreeable to proceed as we have tentatively laid it out for him.
--- NOTE | 2017-11-08 15:58 | NM ---
WHOLE BODY BONE SCAN: DATE: 11/08/17. COMPARISON: None. HISTORY: Lymphadenopathy concerning for malignancy within the abdomen/pelvis. TECHNIQUE: Following the intravenous administration of 33.0 mCi Technetium 99m labeled MDP, anterior and posteri or whole body imaging is obtained. FINDINGS: There is physiologic activity within the kidneys and urinary bladder. There is a punctate focus over lying the right femoral neck. There is a vague area of increased radiotracer activity in the right a cetabular region. Posterior imaging demonstrates a subtle area of increased radiotracer activity in the region of the left sacrum. There is a prominent area of increased radiotracer activity within the T11 vertebral body. There is a focus of increased radiotracer activity within the left aspect of T12. In the T8 and T9 regions on posterior imaging, there is vague increased radiotracer activity with sim ilar radiotracer activity to the right of midline in the region of T7 and T8 vertebral bodies. There is increased radiotracer activity involving numerous bilateral ribs, most prominent in the mick on of the anterior left third rib. There is increased radiotracer activity near the lumbosacral junc tion which could signify a lesion within the S1 vertebral body. IMPRESSION: Foci of increased radiotracer activity associated with numerous osseous structures, including pelvis, right femoral neck, thoracic spine, and multiple ribs, concerning for metastatic disease. Code T POS: [facility]
[2017-11-08] MEDS: Bicalutamide 50 MG TAB PO SCH (17:41)
[2017-11-08] MEDS: Simvastatin 5 MG TAB PO SCH (20:51)
[2017-11-09] MEDS: Dexamethasone 4 mg/ml Vial SLOW IVP SCH ×3 (03:45→17:13)
[2017-11-09] MEDS: HYDROcodone/Acetaminophen 5/325 mg Tablet PO PRN ×4 (05:20→21:28)
[2017-11-09 05:22] LABS: #Lymphocytes 0.7 thou/uL (1.20-3.40); #Monocytes 0.5 thou/uL (0.11-0.59); #Neutrophils 6.5 thou/uL (1.40-6.50); %Basophils 0.5 % (0.0-1.0); %Eosinophils 0.1 % (0.0-10.0); %Lymphocytes 9.6 % (21.0-51.0); %Monocytes 5.8 % (0.0-10.0); Hemoglobin 12.7 g/dL (14.0-18.0); Mean Corpuscular HGB CONC 32.5 g/dL (32.0-36.0); Mean Corpuscular Hemoglobin 31.3 pg (27.0-31.0); Mean Corpuscular Volume 96.2 fl (80.0-94.0); Mean Platelet Volume 6.9 fL (7.4-10.4); Platelet Count 108 thou/uL (130-400); RBC Distribution Width 12.2 % (11.5-14.5); Red Blood Cell (RBC) Count 4.06 mill/uL (4.70-6.10); White Blood Cell (WBC) Count 7.8 thou/uL (4.8-10.8)
[2017-11-09 05:46] LABS: Anion Gap 11 mmol/L (10-20); BUN (Urea Nitrogen) 16 mg/dL (8.4-25.7); Calc. Creatinine Clearance 81 mL/min (70-130); Calcium 9.6 mg/dL (7.8-10.44); Carbon Dioxide 28 mmol/L (23-31); Chloride 102 mmol/L (98-107); Estimated GFR-MDRD 89; Glucose 143 mg/dL (83-110); Potassium 4.1 mmol/L (3.5-5.1); Sodium 137 mmol/L (136-145)
--- NOTE | 2017-11-09 06:14 | PDOC.FM ---
- Subjective Subjective: Mr. Lilli joseph states he is feeling fine this morning, he denies any acute events overnight. He did have a clear watery BM today, but no formed stool. He has not have a formed BM for 4-5 days. He is still passing gas. He denies any fever, chills, night sweats. His back pain is well controlled. - Objective MAR Reviewed: Yes Vital Signs & Weight: Vital Signs (12 hours) Temp Pulse Resp BP Pulse Ox 11/08/17 23:47 97.8 F 56 L 16 119/63 96 11/08/17 20:00 97.5 F L 56 L 16 132/69 95 Weight Admit Weight 75 kg Weight 75 kg I&O: 11/07/17 11/08/17 11/09/17 06:59 06:59 06:59 Intake Total 5164 752 7112 Output Total 900 Balance 1770 -400 1880 Result Diagrams: 11/09/17 04:57 11/09/17 04:57 <Jj Kelley - Last Filed: 11/09/17 08:49> - Objective Vital Signs & Weight: Vital Signs (12 hours) Temp Pulse Resp BP Pulse Ox 11/09/17 08:20 97.9 F 80 20 160/81 H 95 11/08/17 23:47 97.8 F 56 L 16 119/63 96 Weight Admit Weight 75 kg Weight 75 kg I&O: 11/08/17 11/09/17 11/10/17 06:59 06:59 06:59 Intake Total 500 1880 Output Total 900 Balance -400 1880 Result Diagrams: 11/09/17 04:57 11/09/17 04:57 <Demetrius Ritchie - Last Filed: 11/09/17 11:09> Phys Exam - Physical Examination Constitutional: NAD HEENT: moist MMs, sclera anicteric Neck: no JVD, supple, full ROM Respiratory: no wheezing, no rales, no rhonchi, clear to auscultation bilateral Cardiovascular: RRR, no significant murmur, no rub Gastrointestinal: soft, non-tender, positive bowel sounds min distention Musculoskeletal: no edema Neurological: non-focal, normal sensation, moves all 4 limbs Psychiatric: normal affect, A&O x 3 <Jj Kelley - Last Filed: 11/09/17 08:49> Dx/Plan (1) Lymphoma Status: Suspected (2) Compression fracture Code(s): [id number] - Status: Acute (3) Hypercalcemia Code(s): E83.52 - HYPERCALCEMIA Status: Acute (4) Type 2 diabetes mellitus Status: Chronic (5) BPH (benign prostatic hyperplasia) Code(s): N40.0 - BENIGN PROSTATIC HYPERPLASIA WITHOUT LOWER URINRY TRACT SYMP Status: Chronic (6) Hyperlipidemia Code(s): E78.5 - HYPERLIPIDEMIA, UNSPECIFIED Status: Chronic (7) Constipation Code(s): K59.00 - CONSTIPATION, UNSPECIFIED Status: Acute - Plan Plan: 1) Suspected Lymphoma: CT finding suggestive of extensive adenopathy, weight loss, constipation, hypercalcemia We will need biopsy for confirmation of diagnosis Also check UPEP, SPEP [place] for pain control Consulted, Dr. Laws, appreciate recommendations Probable prostate carcinoma with metastasis CT guided lymph node biopsy yesterday, path pending Bone Scan shows increased radiotracer activity associated with numerous osseous structures, pelvis, right femoral neck, thoracic spine, multiple ribs concerning for metastatic disease Radiation oncology is on the case as well, appreciate recs 2) Newly Diagnosed Compression Fracture: causing back pain, has been managed conservatively OP with meds and injections -Spine Xray and MRI confirm T11 fracture with retropulsion -Consulted neurosurgery, started patient on clamshell TLSO brace -PT/OT if patient can tolerate -pain control 3) Hypercalcemia: likely secondary to #1 -check UPEP, SPEP 4) T2DM: Cont home metformin, Accuchecks, Mild SSI 5) BPH: Cont home tamsulosin 6) HLD: come home simvastatin 7) Constipation: Miralax daily, colace bid, metamucil daily, senna prn, added [place] Dulcolax yesterday <Jj Kelley - Last Filed: 11/09/17 08:49> Attending Addendum - Attending Addendum I personally evaluated the patient and discussed the management with Dr. Kelley. I agree with the History, Examination, Assessment and Plan documented above with any addition or exceptions noted below. Patient is doing well after biopsy. We are awaiting tissue diagnosis. He is going for first spine radiation treatment today due to the chance for spinal cord impingement from his compression fracture. Bone scan shows metastatic disease. He has not had a good bowel movement in several days, and we will add lactulose and enema to his regimen. Further recs pending tissue diagnosis of his malignancy. <Demetrius Ritchie - Last Filed: 11/09/17 11:09>
[2017-11-09] MEDS: metFORMIN 500 MG TAB PO SCH (12:07)
[2017-11-09] MEDS: Famotidine 20 MG TAB PO SCH ×2 (12:08→21:28)
[2017-11-09] MEDS: Lisinopril 2.5 MG TAB PO SCH (12:09)
[2017-11-09] MEDS: Enoxaparin Sodium 40 MG/0.4 ML SYRINGE SC SCH (12:09)
[2017-11-09] MEDS: Lactinex Tablet PO SCH (12:10)
[2017-11-09] MEDS: Calcium/Multivitamins W-Iron 1 TAB TAB PO SCH (12:10)
[2017-11-09] MEDS: Polyethylene Glycol 3350 17 GM Packet PO SCH (12:10)
[2017-11-09] MEDS: Docusate 100 MG CAP PO SCH ×2 (12:10→21:28)
[2017-11-09] MEDS: Tamsulosin HCl 0.4 MG CAP PO SCH (12:10)
[2017-11-09] MEDS: Fish Oil 1,000 MG CAP PO SCH (12:10)
[2017-11-09] MEDS: Metamucil PACK PO SCH (12:12)
[2017-11-09] MEDS: Bicalutamide 50 MG TAB PO SCH (15:44)
[2017-11-09] MEDS: Simvastatin 5 MG TAB PO SCH (21:27)
[2017-11-09] MEDS: HumaLOG 300 UNITS/3 ML VIAL SC PRN (22:23)
[2017-11-10] MEDS: Dexamethasone 4 mg/ml Vial SLOW IVP SCH ×3 (03:29→17:09)
[2017-11-10] MEDS: HYDROcodone/Acetaminophen 5/325 mg Tablet PO PRN ×3 (06:03→20:46)
--- NOTE | 2017-11-10 06:03 | PDOC.FM ---
- Subjective Subjective: Mr. Reeder is feeling fine today, he had no acute events overnight. He had his first radiation treatment yesterday and has one scheduled for this morning at 0830 as well. He has no complaints, he had two BMs yesterday. - Objective MAR Reviewed: Yes Vital Signs & Weight: Vital Signs (12 hours) Temp Pulse Resp BP Pulse Ox 11/10/17 04:01 97.9 F 52 L 16 113/64 96 11/09/17 23:44 97.8 F 45 L 16 116/61 96 11/09/17 20:00 97.9 F 57 L 16 116/61 96 Weight Admit Weight 75 kg Weight 75 kg I&O: 11/08/17 11/09/17 11/10/17 06:59 06:59 06:59 Intake Total 500 1880 Output Total 900 1000 Balance -400 1880 -1000 Result Diagrams: 11/09/17 04:57 11/09/17 04:57 <Jj Kelley - Last Filed: 11/10/17 08:23> - Objective Vital Signs & Weight: Vital Signs (12 hours) Temp Pulse Resp BP BP Pulse Ox 11/10/17 08:20 96.1 F L 73 16 93 L 11/10/17 08:19 73 119/72 11/10/17 08:00 96.1 F L 46 L 16 107/65 93 L 11/10/17 04:01 97.9 F 52 L 16 113/64 96 Weight Admit Weight 75 kg Weight 75 kg I&O: 11/09/17 11/10/17 11/11/17 06:59 06:59 06:59 Intake Total 1880 1015 Output Total 1000 Balance 1880 -1000 1015 Result Diagrams: 11/09/17 04:57 11/09/17 04:57 <Demetrius Ritchie R - Last Filed: 11/10/17 12:01> Phys Exam - Physical Examination Constitutional: NAD HEENT: moist MMs, sclera anicteric Neck: no JVD, supple, full ROM Respiratory: no wheezing, no rales, no rhonchi, clear to auscultation bilateral Cardiovascular: RRR, no significant murmur Gastrointestinal: soft, non-tender Musculoskeletal: no edema Neurological: non-focal, moves all 4 limbs Psychiatric: normal affect, A&O x 3 <Jj Kelley Last Filed: 11/10/17 08:23> Dx/Plan (1) Metastatic adenocarcinoma to prostate Code(s): C79.82 - SECONDARY MALIGNANT NEOPLASM OF GENITAL ORGANS Status: Acute Plan: Tissue path showed metastatic prostatic adenocarcinoma -Radiation oncology and Medical Oncology on case, appreciate recs -Cont casodex (2) Lymphoma Status: Suspected (3) Compression fracture Code(s): [id number] - Status: Acute Plan: 2/2 to prostatic adenocarcinoma -radiation to T11 yesterday (4) Hypercalcemia Code(s): E83.52 - HYPERCALCEMIA Status: Acute (5) Type 2 diabetes mellitus Status: Chronic (6) BPH (benign prostatic hyperplasia) Code(s): N40.0 - BENIGN PROSTATIC HYPERPLASIA WITHOUT LOWER URINRY TRACT SYMP Status: Chronic (7) Hyperlipidemia Code(s): E78.5 - HYPERLIPIDEMIA, UNSPECIFIED Status: Chronic (8) Constipation Code(s): K59.00 - CONSTIPATION, UNSPECIFIED Status: Acute - Plan Plan: 1) Metastatic Adenocarcinoma of Prostate: CT finding suggestive of extensive adenopathy, weight loss, constipation, hypercalcemia Tissue pathology showed adenocarcinoma of prostate Bone Scan shows increased radiotracer activity associated with numerous osseous structures, pelvis, right femoral neck, thoracic spine, multiple ribs concerning for metastatic disease Also check UPEP, SPEP [place] for pain control Medical Onc and Radiation Onc on case, appreciate recommendations 2) Newly Diagnosed Compression Fracture: causing back pain, has been managed conservatively OP with meds and injections -Spine Xray and MRI confirm T11 fracture with retropulsion -Consulted neurosurgery, started patient on clamshell TLSO brace -PT/OT if patient can tolerate -pain control -Radiation to T11 yesterday 3) Hypercalcemia: likely secondary to #1 -check UPEP, SPEP 4) T2DM: Cont home metformin, Accuchecks, Mild SSI 5) BPH: Cont home tamsulosin 6) HLD: come home simvastatin 7) Constipation: Miralax daily, colace bid, metamucil daily, senna prn, added [place] Dulcolax yesterday -2 BMs with soap suds enema yesterday <Jj Kelley - Last Filed: 11/10/17 08:23> Attending Addendum - Attending Addendum I personally evaluated the patient and discussed the management with Dr. Kelley. I agree with the History, Examination, Assessment and Plan documented above with any addition or exceptions noted below. Patient officially diagnosed with metastatic poorly differentiated prostate adenocarcinoma. He is already undergoing some chemotherapy and having radiation treatments. Await further recs but anticipate he is nearing discharge with further treatment outpatient. Pain well controlled with PO meds and back brace. <Demetrius Ritchie R - Last Filed: 11/10/17 12:01>
[2017-11-10] MEDS: metFORMIN 500 MG TAB PO SCH (08:19)
[2017-11-10] MEDS: Lisinopril 2.5 MG TAB PO SCH (08:19)
[2017-11-10] MEDS: Docusate 100 MG CAP PO SCH ×2 (08:19→20:48)
[2017-11-10] MEDS: Famotidine 20 MG TAB PO SCH ×2 (08:21→20:48)
[2017-11-10] MEDS: Lactinex Tablet PO SCH (08:22)
[2017-11-10] MEDS: Fish Oil 1,000 MG CAP PO SCH (08:22)
[2017-11-10] MEDS: Tamsulosin HCl 0.4 MG CAP PO SCH (08:22)
[2017-11-10] MEDS: Polyethylene Glycol 3350 17 GM Packet PO SCH (08:24)
[2017-11-10] MEDS: Metamucil PACK PO SCH (08:27)
[2017-11-10] MEDS: Calcium/Multivitamins W-Iron 1 TAB TAB PO SCH (08:29)
[2017-11-10 09:19] LABS: A/G Ratio 1.2 (0.7-1.7); Albumin 3.3 g/dL (2.9-4.4); Alpha 1 0.2 g/dL (0.0-0.4); Alpha 2 0.8 g/dL (0.4-1.0); Beta 0.9 g/dL (0.7-1.3); Gamma 0.9 g/dL (0.4-1.8); Globulin, Total 2.8 g/dL (2.2-3.9); M-Spike Not Observed g/dL (Not Observed)
[2017-11-10] MEDS: Enoxaparin Sodium 40 MG/0.4 ML SYRINGE SC SCH (10:24)
[2017-11-10 11:20] LABS: Albumin-Ur 35.1 % (.); Alpha 1 - Ur 9.6 % (.); Alpha 2 - Ur 14.2 % (.); Beta-Ur 11.7 % (.); Gamma-Ur 29.4 % (.); M-Spike,% Not Observed % (Not Observed); Protein, Urine 6.4 mg/dL (Not Estab.)
[2017-11-10] MEDS: HumaLOG 300 UNITS/3 ML VIAL SC PRN ×3 (12:08→21:53)
[2017-11-10] MEDS: Bicalutamide 50 MG TAB PO SCH (15:47)
[2017-11-10] MEDS: Simvastatin 5 MG TAB PO SCH (20:48)
[2017-11-11] MEDS: Dexamethasone 4 mg/ml Vial SLOW IVP SCH ×2 (01:56→09:34)
--- NOTE | 2017-11-11 06:10 | PDOC.FM ---
- Subjective Subjective: Mr. Reeder seen at bedside this morning. He has no acute events overnight. He has continued hiccups over the last couple days. His back pain is well controlled on his current regimen. He denies any fever, chills, chest pain, dyspnea, n/v/d. She is scheduled for radiation to back this morning. - Objective MAR Reviewed: Yes Vital Signs & Weight: Vital Signs (12 hours) Temp Pulse Resp BP Pulse Ox 11/11/17 00:25 98.4 F 55 L 18 117/66 96 11/10/17 20:00 98.0 F 57 L 16 132/70 96 Weight Admit Weight 75 kg Weight 75 kg I&O: 11/09/17 11/10/17 11/11/17 06:59 06:59 06:59 Intake Total 1880 4430 Output Total 1000 Balance 1880 -1000 4430 Result Diagrams: 11/09/17 04:57 11/09/17 04:57 <Jj Kelley - Last Filed: 11/11/17 08:12> - Objective Vital Signs & Weight: Vital Signs (12 hours) Temp Pulse Resp BP BP Pulse Ox 11/11/17 12:00 98.0 F 45 L 18 142/67 H 95 11/11/17 09:33 57 L 151/73 H 11/11/17 08:00 97.6 F 57 L 16 151/73 H 96 11/11/17 04:55 97.8 F 64 18 121/65 95 11/11/17 00:25 98.4 F 55 L 18 117/66 96 Weight Admit Weight 75 kg Weight 75 kg I&O: 11/10/17 11/11/17 11/12/17 06:59 06:59 06:59 Intake Total 4805 720 Output Total 1000 750 200 Balance -1000 4055 520 Result Diagrams: 11/09/17 04:57 11/09/17 04:57 <Demetrius Ritchie - Last Filed: 11/11/17 12:19> Phys Exam - Physical Examination HEENT: moist MMs, sclera anicteric Neck: no JVD, full ROM Respiratory: no wheezing, no rales, no rhonchi, clear to auscultation bilateral Cardiovascular: RRR, no significant murmur, no rub TLSO brace on Musculoskeletal: no edema, pulses present Neurological: non-focal, moves all 4 limbs Psychiatric: normal affect, A&O x 3 <Jj Kelley - Last Filed: 11/11/17 08:12> Dx/Plan (1) Metastatic adenocarcinoma to prostate Code(s): C79.82 - SECONDARY MALIGNANT NEOPLASM OF GENITAL ORGANS Status: Acute Plan: Tissue path showed metastatic prostatic adenocarcinoma -Radiation oncology and Medical Oncology on case, appreciate recs -Cont casodex -Patient receiving radiation therapy daily, will continue OP -stable for d/c today with follow up with Med Onc, Dr. Laws on Wednesday at 1015 am for initiation of leupron therapy (2) Compression fracture Code(s): NAK1058 - Status: Acute Plan: 2/2 to prostatic adenocarcinoma -radiation to T11 yesterday (3) Hypercalcemia Code(s): E83.52 - HYPERCALCEMIA Status: Resolved (4) Type 2 diabetes mellitus Status: Chronic Plan: Continue home meds on discharge. (5) BPH (benign prostatic hyperplasia) Code(s): N40.0 - BENIGN PROSTATIC HYPERPLASIA WITHOUT LOWER URINRY TRACT SYMP Status: Chronic Plan: Cont home meds (6) Hyperlipidemia Code(s): E78.5 - HYPERLIPIDEMIA, UNSPECIFIED Status: Chronic Plan: Continue home meds (7) Constipation Code(s): K59.00 - CONSTIPATION, UNSPECIFIED Status: Acute Plan: Discharge with bowel regimen Constipation is likely opioid induced <Jj Kelley - Last Filed: 11/11/17 08:12> Attending Addendum - Attending Addendum I personally evaluated the patient and discussed the management with Dr. Kelley. I agree with the History, Examination, Assessment and Plan documented above with any addition or exceptions noted below. Patient doing well. Set up for outpt oncology and radiation therapy. Stable for discharge. Will make minor adjustments to pain regimen and further augmentation will be done by outpatient physicians. <Demetrius Ritchie - Last Filed: 11/11/17 12:19>
[2017-11-11] MEDS: HumaLOG 300 UNITS/3 ML VIAL SC PRN (06:25)
[2017-11-11] MEDS: HYDROcodone/Acetaminophen 5/325 mg Tablet PO PRN ×2 (07:10→11:04)
[2017-11-11] MEDS: Enoxaparin Sodium 40 MG/0.4 ML SYRINGE SC SCH (09:32)
[2017-11-11] MEDS: Famotidine 20 MG TAB PO SCH (09:33)
[2017-11-11] MEDS: Metamucil PACK PO SCH (09:33)
[2017-11-11] MEDS: Fish Oil 1,000 MG CAP PO SCH (09:33)
[2017-11-11] MEDS: Lisinopril 2.5 MG TAB PO SCH (09:33)
[2017-11-11] MEDS: Tamsulosin HCl 0.4 MG CAP PO SCH (09:33)
[2017-11-11] MEDS: Calcium/Multivitamins W-Iron 1 TAB TAB PO SCH (09:33)
[2017-11-11] MEDS: metFORMIN 500 MG TAB PO SCH (09:33)
[2017-11-11] MEDS: Docusate 100 MG CAP PO SCH (09:33)
[2017-11-11] MEDS: Polyethylene Glycol 3350 17 GM Packet PO SCH (09:33)
[2017-11-11] MEDS: Lactinex Tablet PO SCH (09:34)
[2017-11-11] MEDS: Bicalutamide 50 MG TAB PO SCH (11:01)
[2017-11-11 12:02] VITALS: BP 142/67; TEMP 98
--- NOTE | 2017-11-11 13:11 | DIS-2 ---
DATE OF ADMISSION: 11/06/2017 DATE OF DISCHARGE: 11/11/2017 RESIDENT: Jj Kelley MD ADMITTING ATTENDING: Piedad Camacho M.D. DISCHARGE ATTENDING: Demetrius Ritchie MD CONSULTATIONS: 1. Neurosurgery, PRICILLA Paez on 11/07/2017. 2. Dr. Goyo Laws, Oncology, on 11/07/2017. 3. Dr. Frances, Radiation Oncology, on 11/08/2017. PROCEDURES: 1. CT abdomen and pelvis on 11/06/2017, impression: Extensive adenopathy, likely related to lymphom a. Recommend appropriate clinical management and followup. 2. Lumbar spine x-ray on 11/07/2017, impression: T11 compression fracture. 3. Thoracic spine x-ray on 11/07/2017, impression: T11 compression fracture with retropulsion simil ar to the MRI. 4. Lumbar spine MRI on 11/07/2017, impression: Extensive abnormal signal and enhancement of the reg ional marrow compatible with diffuse osseous metastatic disease. 5. Thoracic spine MRI on 11/07/2017, impression: Diffuse signal alteration and enhancement of regio nal marrow related to metastatic disease, with resultant pathologic compression fracture of T11 and s evere cord compromise related to retropulsion of bone. Cord signal abnormality is also present at th is region likely related to compressive edema. 6. Ultrasound guided fine needle aspiration and core biopsy of right inguinal lymphadenopathy, impre ssion: Successful ultrasound guided fine needle aspiration and core biopsy of right inguinal lymphad enopathy. 7. Nuclear medicine bone scan, impression: Foci of increased radiotracer activity associated with n umerous osseous structures including the pelvis, right femoral neck, thoracic spine, and multiple rib s concerning for metastatic disease. 8. Inguinal lymph node pathology, impression: Metastatic poorly differentiated prostatic adenocarci noma. PRIMARY DIAGNOSIS: Metastatic prostatic adenocarcinoma. SECONDARY DIAGNOSES: 1. Compression fracture. 2. Back pain. 3. Type 2 diabetes mellitus. 4. Hypercalcemia. 5. Benign prostatic hypertrophy. 6. Constipation. 7. Hyperlipidemia. DISCHARGE MEDICATIONS: New home medications: 1. Casodex 50 mg p.o. 2. Dulcolax 10 mg p.o. p.r.n. 3. Queen 5/325 1-2 tablets p.o. q.4 hours p.r.n.,120 tablets. 4. Lactulose 30 grams p.o. b.i.d. 5. MiraLax 17 grams p.o. daily. 6. Decadron 4 mg p.o. b.i.d. Resume home medications: 1. Probiotic 1 capsule p.o. daily. 2. Fish oil [place]-3 one capsule p.o. daily. 3. Garlic 1 tablet p.o. daily. 4. Multivitamin 1 each p.o. daily. 5. Tamsulosin 0.4 mg p.o. daily. 6. Metformin 1000 mg p.o. q.a.m. with meals. 7. Simvastatin 10 mg p.o. q.p.m. 8. Lisinopril 2.5 mg p.o. daily. DISCONTINUED MEDICATIONS: 1. Acetaminophen 1000 mg p.o. q.a.m. 2. Morphine 4 mg. 3. Zofran 4 mg. 4. Senokot 2 tablets p.o. p.r.n. 5. Colace 100 mg p.o. daily. 6. Pepcid 20 mg p.o. b.i.d. 7. Sliding scale insulin. 8. Lovenox 40 mg subcu. HISTORY OF PRESENT ILLNESS AND HOSPITAL COURSE: Kale Reeder is a 77-year-old male with past me dical history of diabetes, hypertension, hyperlipidemia, and chronic constipation, who presented with back pain over the last month that has progressively been worsening. The chronic back pain and cons tipation started about 2 months ago. The patient had a lifting injury and then a mechanical fall a m onth later. reports that over the last couple of days, the pain has been worse, has been so sev ere that the patient has been unable to get out of bed and ambulate on his own. The patient was seen by Dr. Asencio, PCP for back pain and constipation. He treated the pain conservatively with over-the-c ounter medications. The patient's last bowel movement was 2 days prior to admission. The patient wa s seen in [facility] ER where they did a CT of the abdomen for left lower quadrant abdomin al pain and it showed extensive adenopathy likely related to lymphoma as well as a compression fractu re of T11. The patient was sent to [place] ED. While at [facility], Oncology and Neurosurgery were consulted. Dr. Laws with Oncology ordered thoracic and lumbar MRIs. Also discussed the case with Dr. Pedraza with Radiology who performed CT guided biopsy of the adenopathy. Also ordered a macy ne scan. Results of these studies were as above. The patient was diagnosed with metastatic prostati c adenocarcinoma. Radiation oncologist Dr. Frances was consulted and initiated radiation therapy for t he spine at T11. Dr. Laws started the patient on Casodex with plan to initiate therapy of Lupron as an outpatient. The patient's back pain was well controlled throughout admission with Queen. Ja l regimen was provided for the patient and he eventually had a bowel movement after 5 days without a bowel movement after he received lactulose. The patient was ready for discharge and cleared by Medic al Oncology, Radiation Oncology, and the medicine team on 11/11/2017 with instructions to continue ra diation therapy with Dr. Frances, continue Casodex and Decadron, and follow up with Dr. Laws on , 11/17/2017 at 10:15 a.m. The patient and expressed understanding of this plan and questi ons were answered. The patient was discharged with bowel regimen and medications were sent to [facility]. DISPOSITION: Stable. The patient agreed to following up with specialists. DISCHARGE INSTRUCTIONS: 1. Location: Home. 2. Diet: Consistent carbohydrate diet. 3. Activity: As tolerated. The patient was provided with TLSO brace for compression fractures. It was recommended that he wear this all day including going to the restroom and showering with brace o n. 4. Follow up with Dr. Laws, Medical Oncology and Dr. Frances, Radiation Oncology for continued karan gement. Follow up with primary care provider for hospital admission followup.
== END 2017-11-11 12:15 | disposition home or self-care (01) | DRG 516 ==
LOC: SCSER 12:01 → SURG A 17:16
PROVIDERS: ADMIT Family Medicine; ATTEND Family Medicine
PROC: 07BH3ZX Excision of Right Inguinal Lymphatic, Percutaneous Approach, Diagnostic (ICD-10-PCS; principal; 2017-11-08)
PROC: CP2YYZZ Tomographic (Tomo) Nuclear Medicine Imaging of Musculoskeletal System, Other using Other Radionuclide (ICD-10-PCS; 2017-11-08)
DX: C79.51 Secondary malignant neoplasm of bone (principal); M84.58XA Pathological fracture in neoplastic disease, other specified site, initial encounter for fracture; S32.011A Stable burst fracture of first lumbar vertebra, initial encounter for closed fracture; E83.52 Hypercalcemia; G95.29 Other cord compression; C61 Malignant neoplasm of prostate; M48.54XA Collapsed vertebra, not elsewhere classified, thoracic region, initial encounter for fracture; E11.9 Type 2 diabetes mellitus without complications; I10 Essential (primary) hypertension; E78.5 Hyperlipidemia, unspecified; K59.09 Other constipation; M54.9 Dorsalgia, unspecified; Z91.81 History of falling; Z79.84 Long term (current) use of oral hypoglycemic drugs; Z87.891 Personal history of nicotine dependence; G89.3 Neoplasm related pain (acute) (chronic); N40.0 Benign prostatic hyperplasia without lower urinary tract symptoms; T40.2X5A Adverse effect of other opioids, initial encounter
CPT/HCPCS: 36415; 36416; 38505; 72072; 72100; 72157; 72158; 74176; 77300; 77306; 77332; 77412; 77417; 78306; 80048; 80053; 83605; 83690; 84153; 84165; 84166; 85025; 85610; 85730; 88172; 88173; 88177; 88184; 88305; 88341; 88342; 88360; 96361; 96374; 96375; 96376; A9503; A9579; G8978-GP-CJ; G8979-GP-CJ; G8980-GP-CJ; G8987-GO-CK; G8988-GO-CI; J1100; J1650; J2270; J2405; L0639

== ENCOUNTER 2017-12-08 12:42 | Outpatient (CLI) | payer MEDICARE, BC ==
--- NOTE | 2017-12-08 14:15 | RAD ---
LUMBAR SPINE SERIES TWO VIEWS: History: Compression fracture follow up. Comparison: 11-07-17 FINDINGS: The lumbar vertebral bodies are fairly normal in height. There are prominent degenerative osteophytic changes present. There are degenerative facet changes also noted. Vascular calcifications are seen. Pedicles are intact. IMPRESSION: Moderate arthritic changes of the lumbar spine, stable exam as compared to 11-17-17 study. POS: [facility]
--- NOTE | 2017-12-08 14:43 | RAD ---
THORACIC SPINE SERIES 3 VIEWS: History Followup compression fracture. COMPARISON: 11/07/17 study. The bones are demineralized. There are prominent degenerative osteophytes in the mid to lower thorac ic spine region. The T11 compression fracture is again demonstrated. There is associated bony retro pulsion. The degree of compression is fairly similar. It could potentially be minimally increased. There has been development of new compression changes of the superior end plate of T8. IMPRESSION: 1. T11 compression fracture with associated bony retropulsion fairly similar to the 11/07/17 study. I t may be slightly more compressed than on that exam. 2. Development of compression changes involving the superior end plate of T8. POS: [facility]
== END 2017-12-08 12:43 | disposition home or self-care (01) ==
LOC: TBSIIMAG 12:42
PROVIDERS: ATTEND Surgery
DX: M48.48XA Fatigue fracture of vertebra, sacral and sacrococcygeal region, initial encounter for fracture (principal)
CPT/HCPCS: 72072; 72100

== ENCOUNTER 2018-02-09 13:00 | Outpatient (CLI) | payer MEDICARE, BC ==
--- NOTE | 2018-02-09 13:41 | RAD ---
3 VIEWS THORACIC SPINE: Date: 02/09/18 HISTORY: Fatigue. Fracture. M48.48XA. COMPARISON: 12/08/17. FINDINGS: AP, lateral, and swimmer's view of thoracic spine demonstrate mid and lower thoracic spine compressio n fractures. These appear to be stable and unchanged since the previous comparison radiograph. No sig nificant interval change is seen since the previous comparison exam. Calcification of the aorta is se en. IMPRESSION: Mid and lower thoracic compression fractures, indeterminate age, but stable since previous comparison radiograph. POS: [facility]
== END 2018-02-09 13:01 | disposition home or self-care (01) ==
LOC: TBSIIMAG 13:00
PROVIDERS: ATTEND Surgery
DX: M48.48XA Fatigue fracture of vertebra, sacral and sacrococcygeal region, initial encounter for fracture (principal); S22.009A Unspecified fracture of unspecified thoracic vertebra, initial encounter for closed fracture
CPT/HCPCS: 72072

== ENCOUNTER 2020-02-09 15:21 | Inpatient (IN) | payer MEDICARE, BC, OTHER ==
[2020-02-09] MEDS ORDERED: Senokot S 8.6-50 MG TAB PO PRN (18:52)
[2020-02-09] MEDS ORDERED: Sodium Chloride 0.9% 500 ML IV SCH (19:15)
[2020-02-09] MEDS: Famotidine 20 MG TAB PO SCH (19:38)
[2020-02-09 22:32] VITALS: BMI 26.6
[2020-02-09] MEDS ORDERED: Furosemide 40 MG/4 ML VIAL SLOW IVP SCH (23:15)
--- NOTE | 2020-02-09 23:21 | HP ---
CHIEF COMPLAINT: Shortness of breath. HISTORY OF PRESENT ILLNESS: Mr. Reeder is a very pleasant 79-year-old man, who reported to the emergency room in [place] today for three days of worsening dyspnea. He admits to some orthopnea and dyspnea on exertion as well. O2 saturation was 90% at [place] on room air when he got there. Now it is 100 % on 3 L of nasal cannula. He continues to talk in 3 to 4 word sentences. He describes tightness across his chest and gradual onset with a dry cough, intermittent. He also reports that he has new swelling to his lower extremities and a max temperature of 99.9. He reports that symptoms are exacerbated by exercise and lying flat. He was evaluated in the emergency room at [place] and then transferred to [facility]. History of past medical history pertinent to this visit prostate cancer with metastases. Reports that they started with radiation. He follows up with Dr. Laws and goes every three months and he is due to go back within the next month. CTA chest was done in [place], which showed no CT evidence of a thromboemboli, bilateral moderate-sized pleural effusions, osseous metastatic disease, 5 cm ascending aortic aneurysm. CT abdomen and pelvis at [place] also showed questionable thickening of the gallbladder wall. Right upper quadrant ultrasound may be necessary if clinically necessary. Small amount of free fluid. He was given a COVID-19 test in [place]. He was also noted to have thrombocytopenia with platelet count of 27, hemoglobin 8.2, hematocrit 24.3. Chemistry for hyponatremia 125, potassium 4.4, chloride 94, carbon dioxide 18, BUN 21, creatinine 0.9, glucose 211. Lactic acid is 2.5. AST is 65. Alkaline phosphatase at 1063. BNP at 134. The patient will be admitted to medical for further evaluation and management. REVIEW OF SYSTEMS: The patient reports fatigue. Reports temperature of 99.9. Reports dyspnea on exertion. Reports lower leg edema, orthopnea, dry cough, shortness of breath, clear sputum. Reports diffuse abdominal pain. All systems are reviewed and are negative unless mentioned above or in the HPI. PAST MEDICAL HISTORY: Pertinent for prostate cancer with METS, hypertension. PAST SURGICAL HISTORY: Had a cyst removed. PSYCHIATRIC HISTORY: None. SOCIAL HISTORY: Denies any alcohol or drug use. Has no smoking history. FAMILY HISTORY: Noncontributory. ALLERGIES: NONE. CURRENT MEDICATIONS: 1. Amiodarone 200 mg p.o. once a day. 2. Metformin 1000 mg b.i.d. 3. Prednisone 20 mg p.o. once a day. 4. Simvastatin 10 mg p.o. once a day. 5. Flomax 0.4 mg p.o. once a day. PHYSICAL EXAMINATION: VITAL SIGNS: Blood pressure 116/59, pulse is 79, respirations 28, PO2 sats are 100% on 4 L, temp is 97.5. CONSTITUTIONAL: The patient appears nontoxic. He does have an increased respiratory rate and is talking in 3 to 4 word sentences. He is alert and oriented to person, place and time. HEENT: Head is atraumatic and normocephalic. Eyes; pupils are equal, round, and reactive to light. Extraocular muscles are intact. Mouth exam is normal. Mucous membranes are moist. Trachea is midline. Normal range of motion. RESPIRATORY: Chest has some mild respiratory distress. Diminished bilateral at the bases. Chest movement is symmetrical. CARDIOVASCULAR: Regular rate and rhythm. Heart sounds are normal. ABDOMEN: There is some mild distention present. Ascites present. BACK: Normal range of motion. No tenderness. EXTREMITIES: Upper extremity, normal range of motion. Motor strength is normal. Lower extremities, normal range of motion. Motor strength is normal. Pedal pulses are normal. Trace edema is noted. NEURO: The patient is oriented to person, place, and time. Speech is normal. PSYCHIATRIC: Has a normal affect. ASSESSMENT AND PLAN: 1. Dyspnea, hypoxia in the context of prostate cancer with metastases and new bilateral effusions and ascites. We will continue O2 therapy and ask Pulmonary to consult as well as Oncology, would appreciate their recommendations. CT scan with gallbladder wall thickening and RUQ U/S recommended. 2. Hyponatremia. The patient will be given normal saline 50 mL/h for just 500 mL and recheck sodium. 3. Thrombocytopenia. We will check platelet count in a.m. We will monitor. We will ask Oncology for further input. 4. History of hypertension. We will restart home medications once reconciled. 5. Diabetes: accuchecks ACHS,mild sliding scale insulin for coverage 6. Gastrointestinal prophylaxis. Started SCDs for deep venous thrombosis prophylaxis. 7. Case discussed in length with Dr. Teixeira, who agrees with plan. 8. The patient is a full code. Discussed at length with the patient's , who is his surrogate decision maker. 9 The patient has a COVID19 test pending. 10. Hospital course is dependent on clinical findings. Job ID: [id number] MTDD
[2020-02-10] MEDS ORDERED: Albuterol 200 PUFF (6.7GM INHALER) INH SCH (02:45)
[2020-02-10] MEDS ORDERED: Ipratropium Oral Inhaler INH SCH (04:30)
[2020-02-10] MEDS: guaiFENesin/Codeine Phosphate 200 mg/20 mg 10 ml UD Cup PO PRN (05:43)
--- NOTE | 2020-02-10 05:55 | PDOC.EVN ---
Event Note - Event Note Event Note: Patient noted to have become progressively more short of breath, and tachypneic. He was noted to have coughed up some blood as few times as well. On exam he has some faint wheezing, as well as rales and decreased breath sounds at the bases. He was given a dose of Lasix earlier without much improvement. Will transfer him to the [facility] for closer monitoring. Give him a unit of platelets, as well as a unit of blood. He may need another dose of Lasix following the transfusions. Await further recommendations per PCCM. Hyponatremia- unclear etiology- possibly related to cancer. Will check urine and serum Osmolality, as well as urine sodium and AM Cortisol, to help determine the cause. He is currently asymptomatic from this standpoint.
[2020-02-10 06:38] LABS: INR-International Normal Ratio 1.8; Mean Corpuscular HGB CONC 33.2 g/dL (32.0-36.0); Mean Corpuscular Hemoglobin 32.1 pg (27.0-31.0); Mean Corpuscular Volume 96.6 fL (78.0-98.0); Mean Platelet Volume 9.3 fL (7.4-10.4); PTT 38.8 SEC (22.9-36.1); Platelet Count 28 thou/uL (130-400); Prothrombin Time 20.5 SEC (12.0-14.7); RBC Distribution Width 15.2 % (11.5-14.5); Red Blood Cell (RBC) Count 2.48 mill/uL (4.70-6.10); White Blood Cell (WBC) Count 6.3 thou/uL (4.8-10.8)
[2020-02-10 06:53] LABS: Band 19 % (5-11); Eosinophils 1 % (0-10); Lymphocytes 21 % (21-51); MDiff Complete? YES; Metamyelocyte 3 % (0-0); Monocytes 5 % (0-10); Myelocyte 2 % (0-0); Neutrophil 49 % (42-75); Nucleated RBC 3 % (0); Platelet Morphology Comment Appears Decreased; Polychromasia SLIGHT = 2-3 cells (100X) (0-2/hpf)
[2020-02-10 06:54] LABS: ALT (SGPT) 20 U/L (8-55); AST (SGOT) 63 U/L (5-34); Albumin 3.9 g/dL (3.4-4.8); Alkaline Phosphatase 1011 U/L (40-110); Anion Gap 14 mmol/L (10-20); BUN (Urea Nitrogen) 20 mg/dL (8.4-25.7); Calc. Creatinine Clearance 84 mL/min (70-130); Calcium 8.8 mg/dL (7.8-10.44); Carbon Dioxide 22 mmol/L (23-31); Chloride 96 mmol/L (98-107); Estimated GFR-MDRD 79; Glucose 163 mg/dL (83-110); Potassium 3.7 mmol/L (3.5-5.1); Protein, Total 5.9 g/dL (5.8-8.1); Sodium 128 mmol/L (136-145)
[2020-02-10] MEDS: Famotidine 20 MG TAB PO SCH (07:33)
[2020-02-10] MEDS: Polyethylene Glycol 3350 17 GM Packet PO SCH ×2 (07:34→08:06)
[2020-02-10] MEDS: Multivitamin W/ Minerals 1 TAB PO SCH (07:34)
[2020-02-10] MEDS: Tamsulosin HCl 0.4 MG CAP PO SCH (07:34)
[2020-02-10] MEDS ORDERED: predniSONE 20 MG TAB PO SCH (09:00)
[2020-02-10] MEDS ORDERED: ABIRATERONE ACETATE 250 MG PO SCH (13:45)
[2020-02-10 14:24] LABS: #Eosinphils 0.1 thou/uL (0.0-0.7); #Monocytes 0.4 thou/uL (0.11-0.59); #Neutrophils 4.8 thou/uL (1.40-6.50); %Basophils 0.5 % (0.0-1.0); %Eosinophils 1.6 % (0.0-10.0); %Lymphocytes 16.1 % (21.0-51.0); %Monocytes 6.8 % (0.0-10.0); Hemoglobin 8.6 g/dL (14.0-18.0); Mean Corpuscular HGB CONC 35.4 g/dL (32.0-36.0); Mean Corpuscular Hemoglobin 33.4 pg (27.0-31.0); Mean Corpuscular Volume 94.3 fL (78.0-98.0); Mean Platelet Volume 8.3 fL (7.4-10.4); Platelet Count 46 thou/uL (130-400); RBC Distribution Width 15.5 % (11.5-14.5); Red Blood Cell (RBC) Count 2.57 mill/uL (4.70-6.10); White Blood Cell (WBC) Count 6.4 thou/uL (4.8-10.8)
[2020-02-10 14:28] LABS: Reticulocyte Count 2.9 % (0.5-1.5)
[2020-02-10] MEDS: HumaLOG 300 UNITS/3 ML VIAL SC PRN ×2 (14:29→17:49)
[2020-02-10 14:41] LABS: Fibrinogen 125 mg/dL (253-463)
[2020-02-10 14:52] LABS: Iron 49 ug/dL (65-175); Iron Binding Capacity, Total 288 mcg/dL (261-462)
[2020-02-10 15:11] LABS: D-Dimer Test Greater than 20.00 *mcg/mL (0.27-0.43)
[2020-02-10 15:17] LABS: Ferritin 1190.49 ng/mL (22-322)
[2020-02-10 15:26] LABS: FSP-Qualitative ABNORMAL (Normal); FSP-Semiquantitative >=40 & <80 mcg/mL (Less than 5)
--- NOTE | 2020-02-10 17:58 | PDOC.HOSPP ---
- Subjective Encounter Date: 02/10/20 Encounter Time: 17:00 Subjective: This morning, was seen by overnight hospitalist after reportedly coughed up some blood. Transfused 1 x PRBC and platelets, no additional episodes. This afternoon, lying in bed comfortably and claims to feel better. Has no complaints. Changed to DNAR per his request, updated regarding morning events and code change - Objective Vital Signs & Weight: Vital Signs (12 hours) Temp Pulse Resp BP Pulse Ox 02/10/20 14:09 98.0 F 98 28 H 132/72 97 02/10/20 12:05 98.0 F 96 27 H 119/67 96 02/10/20 11:54 98.2 F 100 31 H 134/82 96 02/10/20 11:00 98.2 F 99 24 H 134/82 98 02/10/20 10:00 98.0 F 92 23 H 102/61 99 02/10/20 09:45 96.0 F L 97 29 H 115/55 L 97 02/10/20 08:00 98.0 F 99 02/10/20 06:30 99 Weight Weight 196 lb 4.8 oz Most Recent Monitor Data Heart Rate from ECG 83 NIBP 108/58 NIBP BP-Mean 74 Respiration from ECG 22 SpO2 98 I&O: 02/09/20 02/10/20 02/11/20 06:59 06:59 06:59 Intake Total 1100 Output Total 700 Balance 400 Result Diagrams: 02/10/20 14:08 02/10/20 06:21 Additional Labs: Accuchecks 02/10/20 02/09/20 14:03 19:54 POC Glucose 307 H 185 H Hospitalist ROS - Review of Systems Constitutional: denies: fever, chills, sweats, weakness, malaise, other Respiratory: reports: hemoptysis. denies: cough, dry, shortness of breath, SOB with excertion, pleuritic pain, sputum, wheezing Cardiovascular: denies: chest pain, palpitations, orthopnea, paroxysmal noc. dyspnea, edema Gastrointestinal: denies: nausea, vomiting, abdominal pain, diarrhea, constipation Genitourinary: denies: hematuria - Medication Medications: Active Medications Generic Name Dose Route Start Last Admin Trade Name Freq PRN Reason Stop Dose Admin Famotidine 20 mg 02/09/20 21:00 02/10/20 07:33 Pepcid PO Not Given BID SOLEDAD Guaifenesin/Codeine Phosphate 10 ml 02/10/20 05:00 02/10/20 05:43 Robitussin Ac PO 10 ml Q6H PRN Administration Cough Insulin Human Lispro 0 units 02/10/20 14:06 02/10/20 14:29 Humalog SC 5 units .MILD SLIDING SCALE PRN Administration Mild Correctional Scale Iron/Minerals/Multivitamins 1 tab 02/10/20 09:00 02/10/20 07:34 Theragran M PO 1 tab DAILY SOLEDAD Administration Polyethylene Glycol 17 gm 02/10/20 09:00 02/10/20 08:06 Miralax PO Not Given DAILY SOLEDAD Prednisone 10 mg 02/10/20 09:00 02/10/20 07:33 Prednisone PO 10 mg DAILY SOLEDAD Administration Tamsulosin HCl 0.4 mg 02/10/20 09:00 02/10/20 07:34 Flomax PO 0.4 mg DAILY SOLEDAD Administration - Exam General Appearance: NAD, awake alert Neck: JVD Heart: RRR, no murmur, no gallops, no rubs Respiratory: CTAB, no wheezes, no rales, no ronchi Gastrointestinal: soft, non-tender, non-distended, normal bowel sounds Extremities: 1+ LE edema Psychiatric: normal affect, normal behavior, oriented to person, oriented to place. negative: oriented to time Hosp A/P - Plan #dyspnea #bilateral moderate sized pleural effusions -no infiltrates or consolidations seen on CTPE (PE -ve) -afebrile, not coughing on encounter once during 10 minute encounter; no additional hemoptysis episodes since this morning -covid r/o; pending results -per and patient, pleural effusions is new finding but chronicity unknown -likely multifactorial etiology - pleural effusions (likely due to mets), possible pulmonary hemorrhage (DIC, mets), HF -if improves, may benefit from therapeutic and diagnostic paracentesis; pendign ICU evaluation #DIC -has metastatic prostate cancer; also possibly due to covid (pending results) -labs consistent with DIC; per had melanotic stools and this morning reported hemoptysis -partially responded to HgB transfusion this AM -received PRBC x 1 and Plt this AM -follow H&H, plt, pt, ptt, fibrinogen -if significant bleeding and plt < 50k, transfuse plt and PRBC -if significant bleeding, significantly increased PT or PTT or fibrinogen < 50, transfuse -otherwise, dont tranfuse -pantoprazole patient was changed to DNAR as per his request; discussed with condition, poor prognosis, and code status change
[2020-02-10] MEDS ORDERED: Sodium Chloride 0.9% (PF) 10 ML VIAL FS PRN (18:44)
--- NOTE | 2020-02-10 18:50 | CON ---
DATE OF CONSULTATION: REASON FOR CONSULTATION: Prostate cancer. HISTORY OF PRESENT ILLNESS: A 79-year-old male with metastatic prostate cancer, currently on Zytiga, prednisone, Lupron, and Zometa, followed by Dr. Laws. Last seen in December. Admitted to the hospital with shortness of breath and hypoxia. According to history, the patient began having shortness of breath , some tightness across his chest, and a gradual onset of dry cough and swelling in his lower extremities, but T-max of 99.9 at home. The patient's symptoms were worse with exercise or lying flat. The patient presented to [place] [facility], and had a CT angio of the chest that did not show any PE, but did show bilateral moderate- sized pleural effusions and known osseous metastatic disease along with a CT abdomen and pelvis that showed questionable thickening of the gallbladder wall. The patient had a COVID-19 test, that is currently pending. He was also found to have hemoglobin of 8.0 and platelets of 28 on arrival and lactic acid of 2.5 with a BNP of 134. REVIEW OF SYSTEMS: Unable to be obtained as the patient is on isolation for COVID-19 at this time, so he was not physically seen. PAST MEDICAL HISTORY: 1. Prostate cancer. 2. Hypertension. PAST SURGICAL HISTORY: Cyst removal. PSYCHIATRIC HISTORY: None. SOCIAL HISTORY: Smoker, but no alcohol. FAMILY HISTORY: Noncontributory. ALLERGIES: NONE. CURRENT MEDICATIONS: Reviewed. PHYSICAL EXAMINATION: VITAL SIGNS: Temperature 98.0, pulse 101, blood pressure 119/67, and satting 94 %. GENERAL: The patient is seen through the door and appears well; however, no examination done due to COVID-19 precautions. LABORATORY DATA: White blood cell 6.3, hemoglobin 8.0, and platelets 28. PT 20.5, INR 1.8, and PTT 38.8. Sodium 128, potassium 3.7, BUN 20, and creatinine 0.93. Bilirubin 1.0, AST 63, ALT 20, and alkaline phosphatase 1011. Cortisol 7.50. ASSESSMENT AND PLAN: A 79-year-old male with metastatic prostate cancer to bones, on Zytiga and Lupron, presenting to the hospital with gradual worsening shortness of breath, dyspnea on exertion, cough, chest tightness, lower extremity edema, and orthopnea. The patient is currently a COVID rule out. The patient's symptoms are very suggestive of heart failure with his pleural effusions and potentially some pulmonary edema; however, cannot definitively rule out prostate cancer metastatic disease. The patient was last seen in December, and had a rising PSA, and Zytiga was planned, to be seen for repeat check next month with potential change in treatment. He has no known metastatic disease other than to bone and would be less likely for prostate cancer to present this way. The patient also has worsening anemia and thrombocytopenia. In last visit on 12/25, his hemoglobin was 11.8 and platelets were 114 and prior being normal. The patient's CBC does show a few metamyelocytes and myelocytes along with nucleated red blood cells, which could be signs of worsening bone disease affecting the bone marrow leading to his anemia and thrombocytopenia. However, we would also rule out other causes including nutrition, hemolysis, which appears less likely with normal bilirubin and DIC and sepsis given his current picture and elevated coag coagulation factors without any history of warfarin use. We will send D-dimer, fibrinogen, and fibrin split products, B12, folate, iron studies, LDH, and reticulocyte count. The patient may require thoracentesis for definitive diagnosis. We will follow along with you. Job ID: [id number] MTDD
[2020-02-10 19:13] LABS: Hemoglobin 8.7 g/dL (14.0-18.0); Platelet Count 50 thou/uL (130-400)
[2020-02-10 19:18] LABS: INR-International Normal Ratio 1.6; PTT 38.5 SEC (22.9-36.1); Prothrombin Time 19.3 SEC (12.0-14.7)
[2020-02-10 19:22] LABS: Fibrinogen 128 mg/dL (253-463)
[2020-02-10 19:40] LABS: D-Dimer Test Greater than 20.00 *mcg/mL (0.27-0.43)
[2020-02-10 19:41] LABS: Platelet Count 50 thou/uL (130-400)
[2020-02-10 19:54] LABS: FSP-Qualitative ABNORMAL (Normal); FSP-Semiquantitative >=40 & <80 mcg/mL (Less than 5)
[2020-02-10] MEDS ORDERED: Pantoprazole 40 MG VIAL IVP SCH ×2 (21:00)
[2020-02-10] MEDS: Simvastatin 20 MG TAB PO SCH (21:41)
[2020-02-11 04:25] LABS: Anion Gap 11 mmol/L (10-20); BUN (Urea Nitrogen) 23 mg/dL (8.4-25.7); Calc. Creatinine Clearance 89 mL/min (70-130); Calcium 8.7 mg/dL (7.8-10.44); Carbon Dioxide 23 mmol/L (23-31); Chloride 96 mmol/L (98-107); Estimated GFR-MDRD 84; Glucose 150 mg/dL (83-110); Magnesium 2.1 mg/dL (1.6-2.6); Sodium 126 mmol/L (136-145)
[2020-02-11 04:52] LABS: #Eosinphils 0.1 thou/uL (0.0-0.7); #Lymphocytes 1.5 thou/uL (1.20-3.40); #Monocytes 0.6 thou/uL (0.11-0.59); #Neutrophils 4.2 thou/uL (1.40-6.50); %Basophils 0.4 % (0.0-1.0); %Lymphocytes 22.9 % (21.0-51.0); %Monocytes 8.9 % (0.0-10.0); %Neutrophils 65.8 % (42.0-75.0); Hemoglobin 8.1 g/dL (14.0-18.0); Mean Corpuscular Hemoglobin 32.4 pg (27.0-31.0); Mean Corpuscular Volume 95.3 fL (78.0-98.0); Mean Platelet Volume 8.4 fL (7.4-10.4); Platelet Count 41 thou/uL (130-400); RBC Distribution Width 16.1 % (11.5-14.5); White Blood Cell (WBC) Count 6.4 thou/uL (4.8-10.8)
[2020-02-11] MEDS: HumaLOG 300 UNITS/3 ML VIAL SC PRN ×2 (06:29→20:36)
--- NOTE | 2020-02-11 07:46 | RAD ---
SINGLE VIEW CHEST: Date: 02/11/2020 COMPARISON: 02/09/2020. HISTORY: Hemoptysis. FINDINGS: Single view of the chest shows an enlarged cardiomediastinal silhouette. There are small bilateral pl eural effusions with adjacent atelectasis. Degenerative changes are seen in the spine. IMPRESSION: Cardiomegaly and bilateral pleural effusions. POS: [facility]
[2020-02-11] MEDS: Tamsulosin HCl 0.4 MG CAP PO SCH (08:16)
[2020-02-11] MEDS: Multivitamin W/ Minerals 1 TAB PO SCH (08:16)
[2020-02-11] MEDS: Polyethylene Glycol 3350 17 GM Packet PO SCH ×2 (08:16→08:24)
[2020-02-11] MEDS: Pantoprazole 40 MG VIAL IVP SCH ×2 (08:16→20:40)
[2020-02-11] MEDS ORDERED: predniSONE 20 MG TAB PO SCH (09:45)
[2020-02-11] MEDS: ABIRATERONE ACETATE 250 MG PO SCH (10:10)
[2020-02-11] MEDS: Senokot S 8.6-50 MG TAB PO SCH ×2 (10:10→20:35)
[2020-02-11 10:18] LABS: Troponin I 0.018 ng/mL (< 0.028)
[2020-02-11 10:19] LABS: INR-International Normal Ratio 1.6; PTT 39.5 SEC (22.9-36.1); Prothrombin Time 18.8 SEC (12.0-14.7)
[2020-02-11] MEDS ORDERED: Furosemide 100 MG/10 ML VIAL SLOW IVP SCH (11:15)
--- NOTE | 2020-02-11 12:06 | PDOC.HOSPP ---
- Subjective Encounter Date: 02/11/20 Encounter Time: 08:00 Subjective: overnight, exhibited some paranoid delusions claiming that the physician who visited him earlier was from the [facility] and that everything was suspicious. Wanted to leave AMA but was convinced to stay. Also increased oxygen requirement. This morning, more tachypneic and shallower breathing. Satting high 90s on 5L NC. - Objective Vital Signs & Weight: Vital Signs (12 hours) Temp Pulse Ox 02/11/20 07:33 100 02/11/20 04:00 97.5 F L 100 02/11/20 00:09 99 F Weight Weight 196 lb 4.8 oz Most Recent Monitor Data Heart Rate from ECG 97 NIBP 125/68 NIBP BP-Mean 87 Respiration from ECG 20 SpO2 100 I&O: 02/10/20 02/11/20 02/12/20 06:59 06:59 06:59 Intake Total 1940 Output Total 1625 Balance 315 Result Diagrams: 02/11/20 03:54 02/11/20 03:54 Additional Labs: Accuchecks 02/10/20 02/10/20 02/10/20 21:48 17:46 14:03 POC Glucose 167 H 205 H 307 H Hospitalist ROS - Review of Systems Constitutional: denies: fever, chills, sweats Respiratory: reports: shortness of breath, SOB with excertion. denies: cough, dry, hemoptysis, pleuritic pain, sputum, wheezing Cardiovascular: reports: orthopnea. denies: chest pain, palpitations, paroxysmal noc. dyspnea, edema, light headedness Gastrointestinal: reports: constipation. denies: nausea, vomiting, abdominal pain, diarrhea, melena, hematochezia - Medication Medications: Active Medications Generic Name Dose Route Start Last Admin Trade Name Freq PRN Reason Stop Dose Admin Furosemide 60 mg 02/11/20 11:15 02/11/20 11:11 Lasix SLOW IVP 02/11/20 13:15 60 mg NOW SOLEDAD Administration Guaifenesin/Codeine Phosphate 10 ml 02/10/20 05:00 02/10/20 05:43 Robitussin Ac PO 10 ml Q6H PRN Administration Cough Insulin Human Lispro 0 units 02/10/20 14:06 02/11/20 06:29 Humalog SC 2 units .MILD SLIDING SCALE PRN Administration Mild Correctional Scale Iron/Minerals/Multivitamins 1 tab 02/10/20 09:00 02/11/20 08:16 Theragran M PO 1 tab DAILY SOLEDAD Administration Pantoprazole Sodium 40 mg 02/11/20 09:00 02/11/20 08:16 Protonix IVP 40 mg Q12HR SOLEDAD Administration Abiraterone Acetate 0 each 02/11/20 09:00 02/11/20 10:10 [Abiraterone Acetate PO 1 each ] 250 Mg DAILY SOLEDAD Administration Polyethylene Glycol 17 gm 02/10/20 09:00 02/11/20 08:24 Miralax PO 17 gm DAILY SOLEDAD Administration Senna/Docusate Sodium 2 tab 02/11/20 09:00 02/11/20 10:10 Senokot S PO 2 tab BID SOLEDAD Administration Simvastatin 10 mg 02/10/20 21:00 02/10/20 21:41 Zocor PO 10 mg QPM SOLEDAD Administration Tamsulosin HCl 0.4 mg 02/10/20 09:00 02/11/20 08:16 Flomax PO 0.4 mg DAILY SOLEDAD Administration - Exam General Appearance: NAD, awake alert Eye: PERRL ENT: normocephalic atraumatic, moist mucosa Neck: supple, symmetric, JVD Heart: RRR, no murmur, no gallops, no rubs Heart - other findings: attenuated heart sounds Respiratory: CTAB, no wheezes, no rales, no ronchi Respiratory - other findings: reduced breath sounds bilaterally starting midfields Gastrointestinal: normal bowel sounds, distended (worse than yesterday), voluntary guarding Extremities: 1+ LE edema Psychiatric: normal affect, normal behavior, oriented to person, oriented to place. negative: oriented to time Hosp A/P - Plan #dyspnea #bilateral moderate sized pleural effusions -no additional episodes of hemoptysis but increased oxygen demand and clinical deterioration; discussed with [facility] physician -covid r/o; pending results -pleural effusion due to congestive heart failure vs lung mets, though oncology believes former to be more likely -both oncologic medications patient is taking have cardiotoxic effects -Trop, EKG, BNP, Echo -therapeutic and diagnostic thoracentesis #metastatic prostate cancer -mild ascites on CT; abdomen more distended and rigid this morning -evidence of metasteses to thoracic and lumbar spine with some compression fractures -considering worsening clinical course requiring stricter I/O monitoring, physical exam findings and attempting to avoid increased intraabdominal pressure , pending COVID result, placed a rosales -oncology onboard -restarted prednisone since indication despite suspected COVID infection #ascending aortic aneurysm -5cm in diameter -no evidence of dissection on CT with contrast -considering poor prognosis, no indication to follow or carry out preventive measures #melena -reported by -patient has not had bowel movements as inpatient -HgB stable -continue pantoprazole bid Code: DNAR per patient and who is surrogate DVT PPx: SCDs; will transition to pharmacologic if no signs or symptoms of bleeding tomorrow GI PPx: on pantoprazole for suspected melena
[2020-02-11 12:20] LABS: RBC Count-Automated (BF) 2431 /cumm; WBC/Nucleated-Auto (BF) 218 uL
[2020-02-11 12:23] LABS: BF Color Yellow; Body Fluid Source Pleural Fluid; Clarity Clear (Clear); Tube # EDTA
[2020-02-11 12:26] LABS: Pleural Fluid, Amylase Less than 30 U/L (Not Available); Pleural Fluid, Glucose 184 mg/dL; Pleural Fluid, LDH 106 U/L (Not Available); Pleural Fluid, Protein 2.2 g/dL
[2020-02-11 12:48] LABS: BF Segmented Neutrophils 8 %; Cell Count Non Hematic 69 %; Lymphocytes 23 %
--- NOTE | 2020-02-11 16:42 | CON ---
DATE OF CONSULTATION: 02/11/2020 HISTORY OF PRESENT ILLNESS: Kale Reeder is a 79-year-old male, who was admitted with complaints of shortness of breath. We were consulted for pleural effusion. PAST MEDICAL HISTORY: 1. Remarkable for prostate cancer followed by Dr. Laws. Clinically, Dr. Laws tells me that he has been very stable up to this point. 2. Hypertension. FAMILY HISTORY: Negative for lung disease in early age. SOCIAL HISTORY: Nonsmoker and nondrinker. REVIEW OF SYSTEMS: Otherwise negative. He denies having history of heart problems. PHYSICAL EXAMINATION: VITAL SIGNS: Heart rate is 96, blood pressure 111/96, respiratory rates in the 20s. GENERAL: He is in no distress when I saw him. HEAD AND NECK: Unremarkable. LUNGS: Remarkable for decreased breath sounds at his right base. HEART: Regular rhythm. S1, S2 are normal. No S3 is heard. ABDOMEN: Soft and nontender. EXTREMITIES: Without clubbing, cyanosis, or edema. NEURO: Nonfocal. LABORATORY DATA: White count 6.4, hemoglobin 8.1, platelets 41,000. Sodium 126 , potassium 4, chloride 96, bicarb 23, BUN 23, creatinine 0.88. IMPRESSION AND PLAN: 1. Pleural effusions, that are new. 2. Metastatic prostate cancer. 3. Hyponatremia. His cortisol level was 7. At some point along line, he needs an ACTH stimulation test, but I doubt his hyponatremia is secondary to adrenal insufficiency. He also needs a TSH. His BNP was unremarkable, so it becomes less likely that this is heart failure. I recommended thoracentesis. He was agreeable. Risks of bleeding, infection, lung collapse were explained. This is a 50 minute consult, with greater than 50% of time spent on unit coordinating care. Job ID: [id number] [facility]
[2020-02-11] MEDS: Acetaminophen 325 MG TAB PO PRN (18:45)
[2020-02-11] MEDS: Simvastatin 20 MG TAB PO SCH (20:36)
[2020-02-12 04:20] LABS: Anion Gap 15 mmol/L (10-20); BUN (Urea Nitrogen) 28 mg/dL (8.4-25.7); Calc. Creatinine Clearance 69 mL/min (70-130); Calcium 8.5 mg/dL (7.8-10.44); Carbon Dioxide 20 mmol/L (23-31); Chloride 95 mmol/L (98-107); Estimated GFR-MDRD 63; Glucose 190 mg/dL (83-110); Potassium 3.9 mmol/L (3.5-5.1); Sodium 126 mmol/L (136-145)
[2020-02-12] MEDS: Acetaminophen 325 MG TAB PO PRN ×3 (04:21→20:04)
[2020-02-12 05:10] LABS: Anisocytosis SLIGHT = 6-15 cells (100X) (0-5/hpf); Band 18 % (5-11); Hemoglobin 8.6 g/dL (14.0-18.0); Lymphocytes 23 % (21-51); MDiff Complete? YES; Mean Corpuscular HGB CONC 33.1 g/dL (32.0-36.0); Mean Corpuscular Hemoglobin 32.1 pg (27.0-31.0); Mean Platelet Volume 9.1 fL (7.4-10.4); Metamyelocyte 3 % (0-0); Monocytes 4 % (0-10); Myelocyte 5 % (0-0); Neutrophil 47 % (42-75); Nucleated RBC 1 % (0); Platelet Count 43 thou/uL (130-400); Platelet Morphology Comment Appears Decreased; Polychromasia SLIGHT = 2-3 cells (100X) (0-2/hpf); RBC Distribution Width 16.2 % (11.5-14.5); Red Blood Cell (RBC) Count 2.68 mill/uL (4.70-6.10)
--- NOTE | 2020-02-12 06:11 | OP ---
DATE OF PROCEDURE: 02/11/2020 PROCEDURE PERFORMED: Thoracentesis. DESCRIPTION OF PROCEDURE: The patient's right posterior hemithorax was cleansed with chlorhexidine. 10 mL of 1% lidocaine was used to anesthetize the interspace. A small incision was made. An 8-Greenlandic [id number] catheter was inserted in the pleural space without difficulty. 1 L of clear yellow pleural fluid was easily evacuated. No air was evacuated. There was no clinical indication of pneumothorax. Pleural fluid white count was 218, red count 2431. There were only 8% segmented neutrophils. Protein was 2.2, LDH was 106, glucose 184, amylase less than 30. The studies were suggestive of a transudative effusion. We will await cytology. An echocardiogram probably should be ordered. Job ID: [id number]
[2020-02-12] MEDS: HumaLOG 300 UNITS/3 ML VIAL SC PRN ×4 (06:19→20:07)
[2020-02-12] MEDS: Senokot S 8.6-50 MG TAB PO SCH ×2 (07:59→20:06)
[2020-02-12] MEDS: predniSONE 20 MG TAB PO SCH (08:00)
[2020-02-12] MEDS: Multivitamin W/ Minerals 1 TAB PO SCH (08:00)
[2020-02-12] MEDS: ABIRATERONE ACETATE 250 MG PO SCH (08:00)
[2020-02-12] MEDS: Tamsulosin HCl 0.4 MG CAP PO SCH (08:00)
[2020-02-12] MEDS: Pantoprazole 40 MG VIAL IVP SCH (08:01)
--- NOTE | 2020-02-12 08:24 | PDOC.HOSPP ---
- Subjective Encounter Date: 02/12/20 Encounter Time: 08:20 Subjective: overnight, had right thoracentesis, 1L serous fluid removed, patient breathing and oxygen demand improved promptly. This morning, complains of generalized weakness that is unchanged. Otherwise no complaints. Shallow breathing and tachypnia persist - Objective Vital Signs & Weight: Vital Signs (12 hours) Temp Pulse Ox 02/12/20 07:09 97.8 F 02/12/20 04:13 100.8 F H 02/12/20 00:00 99.7 F H 02/11/20 23:45 100 02/11/20 20:35 100.0 F H Weight Weight 196 lb 4.8 oz Most Recent Monitor Data Heart Rate from ECG 106 NIBP 97/64 NIBP BP-Mean 75 Respiration from ECG 33 SpO2 100 I&O: 02/11/20 02/12/20 02/13/20 06:59 06:59 06:59 Intake Total 1940 860 Output Total 1625 2250 Balance 315 -1390 Result Diagrams: 02/12/20 03:33 02/12/20 03:33 Additional Labs: Accuchecks 02/12/20 02/11/20 02/11/20 05:38 20:28 06:00 POC Glucose 224 H 242 H 178 H Hospitalist ROS - Review of Systems Constitutional: reports: weakness. denies: chills, sweats Respiratory: reports: shortness of breath. denies: cough, dry, hemoptysis, pleuritic pain, sputum, wheezing Cardiovascular: reports: orthopnea, edema. denies: chest pain, palpitations, paroxysmal noc. dyspnea Gastrointestinal: denies: nausea, vomiting, abdominal pain, diarrhea Genitourinary: denies: hematuria - Medication Medications: Active Medications Generic Name Dose Route Start Last Admin Trade Name Freq PRN Reason Stop Dose Admin Acetaminophen 650 mg 02/11/20 18:21 02/12/20 08:01 Tylenol PO 650 mg Q6H PRN Administration Fever/Mild Pain (1-3) Guaifenesin/Codeine Phosphate 10 ml 02/10/20 05:00 02/10/20 05:43 Robitussin Ac PO 10 ml Q6H PRN Administration Cough Insulin Human Lispro 0 units 02/10/20 14:06 02/12/20 06:19 Humalog SC 3 units .MILD SLIDING SCALE PRN Administration Mild Correctional Scale Iron/Minerals/Multivitamins 1 tab 02/10/20 09:00 02/12/20 08:00 Theragran M PO 1 tab DAILY SOLEDAD Administration Pantoprazole Sodium 40 mg 02/11/20 09:00 02/12/20 08:01 Protonix IVP 40 mg Q12HR SOLEDAD Administration Abiraterone Acetate 0 each 02/11/20 09:00 02/12/20 08:00 [Abiraterone Acetate PO 4 each ] 250 Mg DAILY SOLEDAD Administration Polyethylene Glycol 17 gm 02/10/20 09:00 02/11/20 08:24 Miralax PO 17 gm DAILY SOLEDAD Administration Prednisone 10 mg 02/12/20 08:00 02/12/20 08:00 Prednisone PO 10 mg QAM-WM SOLEDAD Administration Senna/Docusate Sodium 2 tab 02/11/20 09:00 02/12/20 07:59 Senokot S PO 2 tab BID SOLEDAD Administration Simvastatin 10 mg 02/10/20 21:00 02/11/20 20:36 Zocor PO 10 mg QPM SOLEDAD Administration Sodium Chloride 10 ml 02/10/20 05:48 02/11/20 20:35 Flush - Normal Saline IVF 10 ml PRN PRN Administration Saline Flush Sodium Chloride 10 ml 02/10/20 18:44 02/12/20 08:02 Normal Saline Pf FS 10 ml PRN PRN Administration RECONSTITUTION Tamsulosin HCl 0.4 mg 02/10/20 09:00 02/12/20 08:00 Flomax PO 0.4 mg DAILY SOLEDAD Administration - Exam General Appearance: ill appearing General - other findings: mild distress due to dyspnea Heart: no murmur, no gallops, no rubs Heart - other findings: regular rhythm, tachycardic Respiratory: no ronchi, tachypneic Respiratory - other findings: inspiratory rales b/l, midfiled and caudually; mild wheezing appreciated Gastrointestinal: soft, non-tender, normal bowel sounds Gastrointestinal - other findings: distended Extremities: 1+ LE edema Extremities - other findings: up to midtibial level, pitting, b/l Psychiatric: normal affect, normal behavior, A&O x 3 Hosp A/P - Plan #dyspnea #bilateral moderate sized pleural effusions -pleural fluid is transudative; pending additional results -today hypervolemic on exam; pending echo -Covid ruled out -started lasix 40mg IVP bid -fluid restriction 1.5L/24h -strict i/o #metastatic prostate cancer -mild ascites on CT; abdomen distended, may be a factor in shallow breathing -evidence of metasteses to thoracic and lumbar spine with some compression fractures -considering worsening clinical course requiring stricter I/O monitoring, physical exam findings and attempting to avoid increased intraabdominal pressure , placed a rosales -oncology onboard -continue prednisone, zytega per oncology #ascending aortic aneurysm -5cm in diameter -no evidence of dissection on CT with contrast -considering poor prognosis, no indication to follow or carry out preventive measures #melena (reported) -had normal bowel movement (02/11); no episodes of melena as inpatient -reduce pantoprazole to 40mg PO qd Code: DNAR per patient and who is surrogate DVT PPx: SCDs; will transition to pharmacologic if no signs or symptoms of bleeding tomorrow GI PPx: on pantoprazole
[2020-02-12] MEDS ORDERED: Furosemide 40 MG/4 ML VIAL SLOW IVP SCH (08:30)
--- NOTE | 2020-02-12 12:12 | ULT ---
ULTRASOUND GALLBLADDER RIGHT UPPER QUADRANT: Date: 02/12/2020 HISTORY: Ascites and gallbladder wall thickening. COMPARISON: Reference made to CT abdomen and pelvis dated 02/09/2020. FINDINGS: Visualized portions of the pancreas unremarkable. Liver enlarged and has slightly increased echotextu re. Liver measures 19.0 cm in length. Common bile duct measures up to 7.0 mm, normal for age. Right kidney measures 12.4 x 5.4 x 6.4 cm without mass, hydronephrosis, or abnormal calcifications. Gallbladder wall thickness is 3.0 mm. No cholelithiasis or pericholecystic fluid. IMPRESSION: 1. Gallbladder wall thickness upper limits of normal without cholelithiasis or cholecystitis. The wa ll thickness is likely sequelae of cardiac diastolic dysfunction. 2. Hepatomegaly with diffuse increased hepatic echotexture suggesting hepatocellular disease/congest ion, likely also sequelae of diastolic cardiac dysfunction. 3. Common bile duct upper limits of normal for age without obstructing stone. POS: [facility]
--- NOTE | 2020-02-12 12:12 | PRG ---
DATE OF SERVICE: 02/12/2020 SUBJECTIVE: Kale Reeder has no new complaints. OBJECTIVE: VITAL SIGNS: He is afebrile. Blood pressure heart rate is 105. LUNGS: Unchanged. HEART: Unchanged. ABDOMEN: Unchanged. IMPRESSION: Transudative effusion. PLAN: An echocardiogram has been ordered. Pathology is pending on pleural fluid. Job ID: [id number]
--- NOTE | 2020-02-12 14:22 | PDOC.MOPN ---
Interval History: Sitting in chair, ambulated in hallway earlier. Mild SOB. - Vital Signs Vital Signs: Vital Signs (12 hours) Temp Pulse Ox 02/12/20 11:25 98.7 F 02/12/20 08:00 99 02/12/20 07:09 97.8 F 02/12/20 04:13 100.8 F H Weight Weight 196 lb 4.8 oz Most Recent Monitor Data Heart Rate from ECG 110 NIBP 120/62 NIBP BP-Mean 81 Respiration from ECG 26 SpO2 100 - Physical Exam General: Alert, Oriented x3, No acute distress HEENT: Atraumatic, PERRLA, EOMI, Mucous membr. moist/pink Lungs: Other (crackles) Cardiovascular: Other (tachy) Extremities: No clubbing, No cyanosis, No edema, Normal pulses, No tenderness/ swelling Skin: No rashes, No breakdown, No significant lesion Neurological: Normal gait, Normal speech, Strength at 5/5 X4 ext, Normal tone, Sensation intact, Cranial nerves 3-12 NL, Reflexes 2+ Psych/Mental Status: Mental status NL, Mood NL - Labs Result Diagrams: 02/12/20 03:33 02/12/20 03:33 Lab results: Laboratory Results - last 24 hr 02/12/20 10:35: POC Glucose 261 H 02/12/20 05:38: POC Glucose 224 H 02/12/20 03:33: WBC 4.0 L, RBC 2.68 L, Hgb 8.6 L, Hct 26.0 L, MCV 97.0, MCH 32.1 H, MCHC 33.1, RDW 16.2 H, Plt Count 43 L, MPV 9.1, Neutrophils % (Manual) 47, Band Neuts % (Manual) 18 H, Lymphocytes % (Manual) 23, Monocytes % (Manual) 4, Metamyelocytes % (Man) 3 H, Myelocytes % 5 H, Nucleated RBCs # (Man) 1 H, Plt Morphology Comment Appears Decreased L, Polychromasia SLIGHT = 2-3 cells, Anisocytosis SLIGHT = 6-15 cells 02/12/20 03:33: Sodium 126 L, Potassium 3.9, Chloride 95 L, Carbon Dioxide 20 L , Anion Gap 15, BUN 28 H, Creatinine 1.13, Estimated GFR (MDRD) 63, Glucose 190 H, Calcium 8.5, Magnesium 2.0 02/11/20 20:28: POC Glucose 242 H 02/11/20 11:17: Fluid Diff Path Review 02/10/20 10:00: COVID-19 PCR Not Detected Status: lab reviewed by me A/P - Problem (1) Metastatic adenocarcinoma to prostate Current Visit: No Code(s): C79.82 - SECONDARY MALIGNANT NEOPLASM OF GENITAL ORGANS Status: Acute - Plan Plan: continue zytiga/prednisone for now await cytology of pleural fluid
[2020-02-12] MEDS: Furosemide 40 MG/4 ML VIAL SLOW IVP SCH (14:35)
[2020-02-12] MEDS: HumaLOG 300 UNITS/3 ML VIAL SC SCH (17:05)
[2020-02-12] MEDS: Simvastatin 20 MG TAB PO SCH (20:04)
[2020-02-12] MEDS: Insulin Glargine 7 UNITS in Pre-Filled Syringe SC SCH (20:04)
[2020-02-12 22:44] LABS: Bilirubin Negative (Negative); Blood, Urine 3+ (Negative); Clarity Extra Turbid (Clear); Glucose, Urine (Dipstick) Normal (Negative); Leukocyte 75 Leu/uL (Negative); Nitrite Negative (Negative); Protein, Urine (Dipstick) 100 mg/dL (Neg-Trace); RBC/HPF Greater than 50 HPF (0-3); Squamous Epithelial 0-3 HPF (0-3); Urobilinogen Normal mg/dL (Less than 2); WBC/HPF Greater than 50 HPF (0-3)
[2020-02-12 22:45] LABS: Bacteria/HPF 2+ HPF (None Seen)
[2020-02-12 22:46] LABS: Urine Culture Reflex Yes Yes
[2020-02-13] MEDS: cefTRIAXone\\ROCEPHIN 1 GM in Sodium Chloride 0.9% 100 ML IVPB SCH ×2 (00:02→23:59)
[2020-02-13] MEDS: guaiFENesin/Codeine Phosphate 200 mg/20 mg 10 ml UD Cup PO PRN (00:02)
[2020-02-13 04:24] LABS: Anion Gap 13 mmol/L (10-20); BUN (Urea Nitrogen) 31 mg/dL (8.4-25.7); Calc. Creatinine Clearance 65 mL/min (70-130); Calcium 9.1 mg/dL (7.8-10.44); Carbon Dioxide 24 mmol/L (23-31); Chloride 94 mmol/L (98-107); Estimated GFR-MDRD 61; Glucose 181 mg/dL (83-110); Potassium 3.6 mmol/L (3.5-5.1); Sodium 127 mmol/L (136-145)
[2020-02-13 04:39] LABS: ALT (SGPT) 19 U/L (8-55); AST (SGOT) 55 U/L (5-34); Albumin 3.6 g/dL (3.4-4.8); Alkaline Phosphatase 739 U/L (40-110); Bilirubin, Direct 0.9 mg/dL (0.1-0.3); Bilirubin, Total 1.5 mg/dL (0.2-1.2); Protein, Total 5.8 g/dL (5.8-8.1)
[2020-02-13 04:44] LABS: HBCM Index 0.06 S/CO (0-0.79); HBSAg Index 0.15 S/CO (0-0.99); Hep A IgM AB Non-Reactive (NonReactive); Hep B Surf Ag Non-Reactive S/CO (NonReactive); Hep C IgG Ab Non-Reactive (NonReactive); Hep C Index 0.21 S/CO (0-0.79); Hepatitis B Core IgM Abs Non-Reactive (NonReactive)
[2020-02-13 05:21] LABS: Anisocytosis SLIGHT = 6-15 cells (100X) (0-5/hpf); Band 14 % (5-11); Eosinophils 2 % (0-10); Hemoglobin 8.7 g/dL (14.0-18.0); Lymphocytes 37 % (21-51); MDiff Complete? YES; Mean Corpuscular Hemoglobin 31.1 pg (27.0-31.0); Mean Corpuscular Volume 94.3 fL (78.0-98.0); Mean Platelet Volume 9.4 fL (7.4-10.4); Monocytes 12 % (0-10); Neutrophil 35 % (42-75); Nucleated RBC 1 % (0); Platelet Count 36 thou/uL (130-400); Platelet Morphology Comment Appears Decreased; RBC Distribution Width 15.8 % (11.5-14.5); White Blood Cell (WBC) Count 5.1 thou/uL (4.8-10.8)
[2020-02-13] MEDS: Furosemide 40 MG/4 ML VIAL SLOW IVP SCH ×2 (06:17→14:05)
[2020-02-13] MEDS: HumaLOG 300 UNITS/3 ML VIAL SC PRN ×2 (06:23→20:52)
[2020-02-13] MEDS: Acetaminophen 325 MG TAB PO PRN ×2 (06:25→20:54)
--- NOTE | 2020-02-13 07:21 | RAD ---
SINGLE VIEW CHEST: Date: 02/13/2020 COMPARISON: 02/11/2020. HISTORY: Recurrent fevers. FINDINGS: Single view of the chest shows an enlarged but stable cardiomediastinal silhouette. There are bilater al pleural effusions, right greater than left, with adjacent atelectasis. Degenerative changes are se en in the spine. IMPRESSION: Stable exam. POS: [facility]
--- NOTE | 2020-02-13 07:22 | ULT ---
BILATERAL LOWER EXTREMITY VENOUS ULTRASOUND: Date: 02/13/2020 COMPARISON: None. HISTORY: Bilateral lower extremity pain and edema. TECHNIQUE: Multiplanar Herrera scale and color Doppler images were obtained in a bilateral lower extremity venous u ltrasound. Spectral analysis of the Doppler waveforms were performed. FINDINGS: Bilateral common femoral veins, profunda femoral veins, superficial femoral veins, and popliteal vein s are normal in appearance without visible thrombus. These vessels demonstrate normal compression, fl ow, and augmentation. The posterior tibial veins and greater saphenous veins are also patent. In the right popliteal fossa, there is a complex fluid collection measuring 4.7 cm in greatest dimens ion which likely represents a Andres's cyst. IMPRESSION: 1. No evidence of deep venous thrombosis. 2. Andres's cyst. POS: [facility]
[2020-02-13] MEDS: Multivitamin W/ Minerals 1 TAB PO SCH (09:01)
[2020-02-13] MEDS: predniSONE 20 MG TAB PO SCH (09:01)
[2020-02-13] MEDS: Polyethylene Glycol 3350 17 GM Packet PO SCH (09:02)
[2020-02-13] MEDS: Tamsulosin HCl 0.4 MG CAP PO SCH (09:03)
[2020-02-13] MEDS: Senokot S 8.6-50 MG TAB PO SCH ×2 (09:03→20:54)
[2020-02-13] MEDS: ABIRATERONE ACETATE 250 MG PO SCH (09:21)
--- NOTE | 2020-02-13 09:42 | PDOC.HOSPP ---
- Subjective Encounter Date: 02/13/20 Encounter Time: 09:00 Subjective: overnight, continue to be febrile and UA positive. This morning, complains of generalized weakness that is chronic. otherwise no complaints - Objective Vital Signs & Weight: Vital Signs (12 hours) Temp 02/13/20 07:45 98.2 F 02/13/20 04:00 99.3 F 02/13/20 00:00 99.1 F Weight Weight 191 lb 3 oz Most Recent Monitor Data Heart Rate from ECG 107 NIBP 123/61 NIBP BP-Mean 81 Respiration from ECG 35 SpO2 97 I&O: 02/12/20 02/13/20 02/14/20 06:59 06:59 06:59 Intake Total 860 1675 Output Total 2250 1450 Balance -1390 225 Result Diagrams: 02/13/20 03:35 02/13/20 03:35 Additional Labs: Accuchecks 02/13/20 02/12/20 02/12/20 06:23 20:07 16:41 POC Glucose 207 H 326 H 458 H 02/12/20 10:35 POC Glucose 261 H Hospitalist ROS - Review of Systems Constitutional: denies: chills, sweats Respiratory: reports: SOB with excertion. denies: cough, dry, shortness of breath, hemoptysis, pleuritic pain, sputum, wheezing Cardiovascular: reports: orthopnea, edema. denies: chest pain, palpitations, paroxysmal noc. dyspnea Gastrointestinal: denies: nausea, vomiting, abdominal pain, diarrhea, melena, hematochezia Genitourinary: denies: hematuria - Medication Medications: Active Medications Generic Name Dose Route Start Last Admin Trade Name Helderq PRN Reason Stop Dose Admin Acetaminophen 650 mg 02/11/20 18:21 02/13/20 06:25 Tylenol PO 650 mg Q6H PRN Administration Fever/Mild Pain (1-3) Furosemide 40 mg 02/12/20 14:00 02/13/20 06:17 Lasix SLOW IVP 40 mg 0600,1400 SOLEDAD Administration Guaifenesin/Codeine Phosphate 10 ml 02/10/20 05:00 02/13/20 00:02 Robitussin Ac PO 10 ml Q6H PRN Administration Cough Insulin Glargine 7 units/ 0.07 mls @ 0 mls/hr 02/12/20 21:00 02/12/20 20:04 Miscellaneous Medication SC 0.07 mls HS SOLEDAD Administration Ceftriaxone Sodium 1 gm/ 100 mls @ 200 mls/hr 02/12/20 23:59 02/13/20 00:02 Sodium Chloride IVPB 100 mls 2359 SOLEDAD Administration Insulin Human Lispro 0 units 02/10/20 14:06 02/13/20 06:23 Humalog SC 3 units .MILD SLIDING SCALE PRN Administration Mild Correctional Scale Iron/Minerals/Multivitamins 1 tab 02/10/20 09:00 02/13/20 09:01 Theragran M PO 1 tab DAILY SOLEDAD Administration Pantoprazole Sodium 40 mg 02/12/20 09:00 02/13/20 09:01 Protonix PO 40 mg DAILY SOLEDAD Administration Abiraterone Acetate 0 each 02/11/20 09:00 02/13/20 09:21 [Abiraterone Acetate PO 4 each ] 250 Mg DAILY SOLEDAD Administration Polyethylene Glycol 17 gm 02/10/20 09:00 02/13/20 09:02 Miralax PO 17 gm DAILY SOLEDAD Administration Prednisone 10 mg 02/12/20 08:00 02/13/20 09:01 Prednisone PO 10 mg QAM-WM SOLEDAD Administration Senna/Docusate Sodium 2 tab 02/11/20 09:00 02/13/20 09:03 Senokot S PO 2 tab BID SOLEDAD Administration Simvastatin 10 mg 02/10/20 21:00 02/12/20 20:04 Zocor PO 10 mg QPM SOLEDAD Administration Sodium Chloride 10 ml 02/10/20 05:48 02/11/20 20:35 Flush - Normal Saline IVF 10 ml PRN PRN Administration Saline Flush Sodium Chloride 10 ml 02/10/20 18:44 02/12/20 08:02 Normal Saline Pf FS 10 ml PRN PRN Administration RECONSTITUTION Tamsulosin HCl 0.4 mg 02/10/20 09:00 02/13/20 09:03 Flomax PO 0.4 mg DAILY SOLEDAD Administration - Exam General Appearance: NAD, awake alert General - other findings: sitting comfortably Eye: PERRL, anicteric sclera Heart: no murmur, no gallops, no rubs Heart - other findings: tachycardic Respiratory - other findings: shallow breathing, inspiratory rales midfield and inferiorly Gastrointestinal: soft, normal bowel sounds, no guarding, distended Extremities: 1+ LE edema Psychiatric: normal affect, normal behavior, A&O x 3 Hosp A/P - Plan #dyspnea #bilateral moderate sized pleural effusions s/p right thoracentesis with improvement -likely multifactorial - pleural effusions, increased intraabdominal pressure; less likely pneumonia -Echocardiography noncontributory -liver studies consistent with mild hepatobilliary disease, may be Zytiga- induced DILI; zytiga can also cause mineralcorticoid excess resulting in edema -though pleural effusion transudate, may still be malignant; awaiting cytology -may benefit from left therapeutic thoracentesis; defer to PCCM -hypervolemic on exam -continue lasix 40mg IVP bid -fluid restriction 1.5L/24h -strict i/o #complicated UTI -has been febrile for past 2 days -infectious workup initiated; UA positive -pending additional workup results and urine culture -started on ceftriaxone #metastatic prostate cancer -mild ascites on CT; abdomen distended, may be a factor in shallow breathing -evidence of metasteses to thoracic and lumbar spine with some compression fractures -oncology onboard -continue prednisone, zytiga per oncology #ascending aortic aneurysm -5cm in diameter -no evidence of dissection on CT with contrast -considering poor prognosis, no indication to follow or carry out preventive measures Code: DNAR per patient and who is surrogate DVT PPx: enoxeparin GI PPx: on pantoprazole
[2020-02-13] MEDS: HumaLOG 300 UNITS/3 ML VIAL SC SCH ×3 (11:52→17:06)
--- NOTE | 2020-02-13 15:32 | PRG ---
DATE OF SERVICE: 02/13/2020 OBJECTIVE: Mr. Reeder is afebrile. Heart rate is 103, blood pressure is 98/62, respiratory rates in the 20s. LUNGS: Clear. HEART: Regular rhythm. ABDOMEN: Distended. LABORATORY DATA: White count 5.1, hemoglobin 8.7, platelets 36,000. Protime is between 18.8 and 20.5. Bilirubin today is 1.5, AST is 55, ALT is 19, alkaline phosphatase is 739. IMPRESSION: 1. Metastatic prostate cancer. 2. Transudative pleural effusion? secondary to liver disease. His ejection fraction on the echocardiogram was normal, and he did not have a dilated left atrium. He did have a dilated right heart. His creatinine is 1.16. A CT pulmonary angiogram should probably be done to rule out chronic thromboembolic disease, although he appears to be auto-anticoagulated. He is on Lovenox, which probably does not add anything to the fact that his INR is already almost 2. I suspect this is secondary to liver dysfunction, and I also suspect that he does not have thromboembolic disease given that he came in with an INR of 1.8. We will continue to follow. His pathology of his pleural fluid was negative for malignancy. Job ID: [id number]
--- NOTE | 2020-02-13 15:46 | PDOC.MOPN ---
Interval History: breathing improved. - Vital Signs Vital Signs: Vital Signs (12 hours) Temp Pulse Ox 02/13/20 15:20 97.6 F 02/13/20 12:00 97.8 F 100 02/13/20 08:00 100 02/13/20 07:45 98.2 F 02/13/20 04:00 99.3 F Weight Weight 191 lb 3 oz Most Recent Monitor Data Heart Rate from ECG 103 NIBP 98/62 NIBP BP-Mean 74 Respiration from ECG 29 SpO2 100 - Physical Exam General: Alert, Oriented x3, No acute distress HEENT: Atraumatic, PERRLA, EOMI, Mucous membr. moist/pink Lungs: Other (crackles) Cardiovascular: Regular rate Abdomen: Normal bowel sounds Neurological: Normal speech - Labs Result Diagrams: 02/13/20 03:35 02/13/20 03:35 Lab results: Laboratory Results - last 24 hr 02/13/20 13:40: Prostate Specific Ag 3.86 02/13/20 10:28: POC Glucose 242 H 02/13/20 06:23: POC Glucose 207 H 02/13/20 03:35: Total Bilirubin 1.5 H, Direct Bilirubin 0.9 H, AST 55 H, ALT 19 , Alkaline Phosphatase 739 H, Serum Total Protein 5.8, Albumin 3.6 02/13/20 03:35: Hepatitis A IgM Ab Non-Reactive, Hep Bs Antigen Non-Reactive, Hep B Core IgM Ab Non-Reactive, Hepatitis C Antibody Non-Reactive 02/13/20 03:35: Procalcitonin 0.75 02/13/20 03:35: WBC 5.1, RBC 2.80 L, Hgb 8.7 L, Hct 26.4 L, MCV 94.3, MCH 31.1 H , MCHC 33.0, RDW 15.8 H, Plt Count 36 L, MPV 9.4, Neutrophils % (Manual) 35 L, Band Neuts % (Manual) 14 H, Lymphocytes % (Manual) 37, Monocytes % (Manual) 12 H , Eosinophils % (Manual) 2, Nucleated RBCs # (Man) 1 H, Plt Morphology Comment Appears Decreased L, Anisocytosis SLIGHT = 6-15 cells 02/13/20 03:35: Sodium 127 L, Potassium 3.6, Chloride 94 L, Carbon Dioxide 24, Anion Gap 13, BUN 31 H, Creatinine 1.16, Estimated GFR (MDRD) 61, Glucose 181 H , Calcium 9.1, Magnesium 2.0 02/12/20 22:21: Urine Color Sofya, Urine Clarity Extra Turbid A, Urine pH 5.5, Ur Specific Baltic 1.017, Urine Protein 100 A, Urine Glucose (UA) Normal, Urine Ketones Negative, Urine Blood 3+ A, Urine Nitrite Negative, Urine Bilirubin Negative, Urine Urobilinogen Normal, Ur Leukocyte Esterase 75 A, Urine RBC Greater than 50 A, Urine WBC Greater than 50 A, Ur Squamous Epith Cells 0-3, Urine Bacteria 2+ A, Urine Culture Reflexed Yes A 02/12/20 20:07: POC Glucose 326 H 02/12/20 16:41: POC Glucose 458 H Status: lab reviewed by me A/P - Problem (1) Metastatic adenocarcinoma to prostate Current Visit: No Code(s): C79.82 - SECONDARY MALIGNANT NEOPLASM OF GENITAL ORGANS Status: Acute - Plan Plan: continue zytiga/prednisone no malignant cells in pleural fluid recheck PSA today Follow-up with Dr. gonzalez.
[2020-02-13] MEDS: Insulin Glargine 7 UNITS in Pre-Filled Syringe SC SCH (20:52)
[2020-02-13] MEDS: Simvastatin 20 MG TAB PO SCH (20:54)
[2020-02-13] MEDS ORDERED: Enoxaparin Sodium 30 MG/0.3 ML SYRINGE SC SCH (21:00)
[2020-02-14 04:36] LABS: ALT (SGPT) 18 U/L (8-55); AST (SGOT) 49 U/L (5-34); Albumin 3.2 g/dL (3.4-4.8); Alkaline Phosphatase 634 U/L (40-110); Anion Gap 11 mmol/L (10-20); BUN (Urea Nitrogen) 35 mg/dL (8.4-25.7); Bilirubin, Total 1.1 mg/dL (0.2-1.2); Calc. Creatinine Clearance 67 mL/min (70-130); Calcium 8.3 mg/dL (7.8-10.44); Carbon Dioxide 27 mmol/L (23-31); Chloride 93 mmol/L (98-107); Estimated GFR-MDRD 63; Globulin 2.2 g/dL (2.4-3.5); Glucose 191 mg/dL (83-110); Protein, Total 5.4 g/dL (5.8-8.1); Sodium 127 mmol/L (136-145)
[2020-02-14] MEDS: HumaLOG 300 UNITS/3 ML VIAL SC PRN ×4 (06:47→20:52)
--- NOTE | 2020-02-14 07:44 | CON ---
DATE OF CONSULTATION: 02/13/2020 REASON FOR CONSULT: Recurrent pleural effusions, transudative with slight elevated bilirubin, concern for possible underlying liver disease contributing. CONSULTING PHYSICIAN: Dr. Justin Jean. HISTORY OF PRESENT ILLNESS: Mr. Reeder is a 79-year-old gentleman with known history of metastatic prostate cancer, who was admitted to the hospital with shortness of breath recently, found to have pleural effusion. He was admitted on the and he was seen by Pulmonary on the . As this was a new effusion, it was tapped and found to be transudative. The patient is a poor historian, but reviewing his chart and talking to him, it seems he has had problems with swelling in the lower extremities as well in the past. His shortness of breath would worsen with lying flat and activity. Prior to arrival here, he had a CAT scan showing no evidence of pulmonary embolus of the chest. He had some moderate bilateral effusions. He had osseous metastatic disease known from his prostate cancer, 5 cm ascending aortic aneurysm, and questionable thickening or prominence of the gallbladder wall. He had a very small amount of fluid on the right upper abdomen, but no overt ascites. Pathology in his fluid has been benign. He had an echocardiogram on 02/12/2020, showed sinus tachycardia. LV of normal size. EF of 60% to 65%. Mildly enlarged right ventricular cavity. Left atrium is normal. Normal aortic valve. Trace tricuspid regurgitation. Trivial pericardial fluid. Pleural effusion. No RV pressures recorded in the report. The patient reports he has problems with swelling and edema for some time now. I have been asked to see him with regard to whether this may be of liver etiology. He denies any known history of liver disease. Denies any family history of cirrhosis. He denies any prior history of hepatitis or yellow jaundice. Does occasionally drink beer. REVIEW OF SYSTEMS: He denied any confusion. Negative for melena, hematochezia, or hematemesis. Reports had a colonoscopy about 10 years ago which was normal. Denies any prior history of heart disease as far as he knows of. PAST MEDICAL HISTORY: Prostate cancer with metastatic disease to the bone diffuse, hypertension. PAST SURGICAL HISTORY: Cyst removal. PSYCHIATRIC HISTORY: None. SOCIAL HISTORY: He drinks beer, alcohol, a couple of drinks per day as in the past. He is not drinking as much now. He does not smoke. FAMILY HISTORY: Negative for liver disease or colorectal cancer. ALLERGIES: NONE. MEDICATIONS: Home medications: 1. Metformin. 2. Prednisone. 3. Tamsulosin. 4. Simvastatin. 5. Polyethylene glycol. 6. Multivitamin, thiamine, folate. 7. Lactobacillus. 8. Ibuprofen. 9. Acetaminophen. 10. Abiraterone. Present medications: 1. Abiraterone. 2. Acetaminophen. 3. Rocephin. 4. Lasix 40 b.i.d. 5. Insulin sliding scale. 6. Pantoprazole. 7. Prednisone 10. 8. Flomax. PHYSICAL EXAMINATION: VITAL SIGNS: Temperature is 97, pulse 103 to 110, and blood pressure 198/62. GENERAL: He knows where he is. He is alert and oriented, but he is a little bit slow on the uptake and does not remember or have a good memory for previous events. HEENT: He is nonicteric. NECK: Supple. No adenopathy. LUNGS: Clear. Decreased breath sounds at bases bilaterally. HEART: Regular rate and rhythm. ABDOMEN: I do not feel any enlarged liver. I do not feel any splenomegaly. He has a protuberant abdomen. No shifting, dullness, or fluid wave. EXTREMITIES: No clubbing or cyanosis. There is edema all the way up to his legs and thighs bilaterally. I do not see any spider angiomata or palmar erythema. There is no overt asterixis. LABORATORY STUDIES: White count 5.1, hemoglobin 8.7, and platelet count 36,000. He has had a low platelet count dating back to 2017 and 2018. INR is 1.6 on 10/04. Sodium 127, potassium 3.6, chloride 94, BUN and creatinine 31 and 1.16, glucose is 118, bilirubin is 1.5. It was normal prior to that. AST is 55; ALT is 19; alk phos is 739, which is down from 1724 on 12/25/2019. Direct bilirubin is 0.9. Albumin 3.6. On 12/25, it was 4.2 and in 2018, 4.5. Cortisol was 7.5. Procalcitonin 0.75. PSA 3. B12 has been 338, normal. Iron, TIBC, and ferritin have been fine, except for iron of 49, slightly low; ferritin was 1190. TIBC was 288. Hepatitis A, B, and C serologies were normal. IMAGING: Ultrasound revealed possibly some large liver 19 cm. The spleen appears normal. There is possible some infiltrative process of the liver, hepatic echotexture suggestive of congestion or diastolic cardiac dysfunction, gallbladder wall thickening, mild. Common bile duct, no stones. CT scan, which I did review with Radiology, shows no evidence of splenomegaly, hepatomegaly, or liver masses. The inferior vena cava does appear dilated on that study and the heart appears mildly enlarged on that study. ASSESSMENT: This is a gentleman who is admitted with known history of metastatic lung cancer, now with an effusion which was transudative and nonmalignant. The etiology of this effusion is unclear. It was felt that he probably had heart failure as he has a history of peripheral edema, however, his echocardiogram showed a normal ejection fraction 60% to 65%. There is not really much comment on the right-sided pressures, although he has a large right ventricle. I have been asked to see him to see if I thought he had cirrhosis. There are no overt findings to suggest cirrhosis. His albumin is normal. He has a dilated inferior vena cava on his CAT scan and enlarged heart on his CAT scan. This is probably passive congestion. He does have a low platelet count, which is likely related to sequestration from splenomegaly, although his spleen does appear normal on his imaging study. I would favor a right-sided heart failure over cirrhosis based on his albumin and total protein levels alone. One does not usually see effusions develop with these kind of protein and albumin levels. The only way to really fully document whether or not he would have cirrhosis would be to biopsy him. He has normal iron stores. The ferritin is elevated, which is an acute phase reactant. I do not see any need to work him up further for the underlying liver disease. RECOMMENDATIONS: 1. I would sodium restrict him which is effective both in heart failure and cirrhosis. I would add some Aldactone to his diuretic regimen at a ratio of 40 of Lasix to 100 of Aldactone when he is discharged as this can be helpful in fluid retention related to ascites, cirrhosis, and heart failure. 2. I would involve a timber sprinkler in his care and see what they think about the cardiac issues. Also, he needs to be on a low-salt diet and have dietary teaching about this. We will follow along with you. Job ID: [id number]
[2020-02-14] MEDS ORDERED: Enoxaparin Sodium 30 MG/0.3 ML SYRINGE SC SCH (09:00)
[2020-02-14] MEDS: predniSONE 20 MG TAB PO SCH (09:31)
[2020-02-14] MEDS: Polyethylene Glycol 3350 17 GM Packet PO SCH (09:32)
[2020-02-14] MEDS: Multivitamin W/ Minerals 1 TAB PO SCH (09:32)
[2020-02-14] MEDS: Senokot S 8.6-50 MG TAB PO SCH ×2 (09:32→20:50)
[2020-02-14] MEDS: Tamsulosin HCl 0.4 MG CAP PO SCH (09:33)
[2020-02-14] MEDS: ABIRATERONE ACETATE 250 MG PO SCH (09:33)
[2020-02-14] MEDS: HumaLOG 300 UNITS/3 ML VIAL SC SCH ×3 (09:34→17:07)
--- NOTE | 2020-02-14 10:29 | PRG ---
DATE OF SERVICE: 02/14/2020 SUBJECTIVE: The patient is still short of breath, but much less relative to when admitted. Has some gum bleeding with brushing his teeth this morning. There is no nausea, vomiting, or abdominal pain. PHYSICAL EXAMINATION: VITAL SIGNS: Temperature is 99.5, blood pressure 127/68, pulse of 87. GENERAL: He is alert, sitting up in big chair, conversant without any distress. HEENT: Shows anicteric sclerae. Oropharynx shows some gum bleeding in the right lower jaw. NECK: Supple. CV: Shows normal S1 and S2. Regular rate and rhythm. CHEST: Shows reduced air flow in the lower bases, otherwise no wheezing or rhonchi. ABDOMEN: Mildly protuberant, but soft and nontender. He has active bowel sounds. EXTREMITIES: Shows 1+ pretibial and 2+ pedal edema. LABORATORY DATA: White blood count 5.1, hemoglobin 8.7, platelet count of 36. Sodium 127, potassium 4.0, chloride 93, CO2 of 27, creatinine 1.13, BUN of 35, bilirubin 1.1, AST 49, ALT 18, alkaline phosphatase 634, and albumin 3.2. ASSESSMENT: 1. Bilateral transudative pleural effusion with negative cytology. Review of CT showed smooth liver contour without any radiographic finding of portal hypertension. The spleen is normal size on CT. His heart appears dilated with generous inferior vena cava. Finding favors right sided heart failure as a cause of his pleural effusion and peripheral edema without ascites, however cirrhosis cannot be definitively excluded. Liver MRI may be helpful and a liver biopsy would be definitive. However, these two tests are not needed nor recommended as findings may not record changer much in the big context of his other health issues including metastatic prostate cancer. 2. Pancytopenia, likely from splenic sequestration, although splenomegaly is not seen on CT. 3. Metastatic prostate cancer to the bones. RECOMMENDATIONS: 1. No further GI evaluation is discussed above unless he has drainable ascites, in which case, then would do further fluid analysis. 2. Continue with low-salt diet and salt restriction. 3. The patient is currently on furosemide 40 mg b.i.d., would add Aldactone 100 mg p.o. daily with close monitor of his renal function. Job ID: [id number] [facility]
--- NOTE | 2020-02-14 10:41 | PDOC.HOSPP ---
- Subjective Encounter Date: 02/14/20 Encounter Time: 09:00 Subjective: overnight, reports of coughing up sputum with blood. This morning, sitting comfortably in bed. gross hematuria with fresh blood in oral cavity. - Objective Vital Signs & Weight: Vital Signs (12 hours) Temp Pulse Ox 02/14/20 08:00 100 02/14/20 07:20 99.5 F 02/14/20 03:37 97.2 F L 02/13/20 23:29 97.8 F Weight Weight 190 lb Most Recent Monitor Data Heart Rate from ECG 111 NIBP 125/60 NIBP BP-Mean 81 Respiration from ECG 26 SpO2 100 I&O: 02/13/20 02/14/20 02/15/20 06:59 06:59 06:59 Intake Total 1675 2100 Output Total 1450 1125 Balance 225 975 Result Diagrams: 02/14/20 12:11 02/14/20 03:37 Additional Labs: Accuchecks 02/14/20 02/13/20 02/13/20 06:08 20:08 16:54 POC Glucose 223 H 310 H 410 H Hospitalist ROS - Review of Systems Constitutional: denies: fever, chills, sweats, weakness, malaise, other Respiratory: reports: cough, hemoptysis, sputum. denies: dry, shortness of breath, SOB with excertion, pleuritic pain Cardiovascular: reports: orthopnea, paroxysmal noc. dyspnea, edema. denies: chest pain, palpitations Gastrointestinal: denies: nausea, vomiting, abdominal pain, diarrhea, constipation, melena, hematochezia Genitourinary: reports: hematuria. denies: dysuria, frequency, incontinence - Medication Medications: Active Medications Generic Name Dose Route Start Last Admin Trade Name Freq PRN Reason Stop Dose Admin Acetaminophen 650 mg 02/11/20 18:21 02/13/20 20:54 Tylenol PO 650 mg Q6H PRN Administration Fever/Mild Pain (1-3) Furosemide 40 mg 02/12/20 14:00 02/13/20 14:05 Lasix SLOW IVP 40 mg 0600,1400 SOLEDAD Administration Guaifenesin/Codeine Phosphate 10 ml 02/10/20 05:00 02/13/20 00:02 Robitussin Ac PO 10 ml Q6H PRN Administration Cough Insulin Glargine 7 units/ 0.07 mls @ 0 mls/hr 02/12/20 21:00 02/13/20 20:52 Miscellaneous Medication SC 0.07 mls HS SOLEDAD Administration Ceftriaxone Sodium 1 gm/ 100 mls @ 200 mls/hr 02/12/20 23:59 02/13/20 23:59 Sodium Chloride IVPB 100 mls 2359 SOLEDAD Administration Insulin Human Lispro 0 units 02/10/20 14:06 02/14/20 06:47 Humalog SC 3 units .MILD SLIDING SCALE PRN Administration Mild Correctional Scale Insulin Human Lispro 6 units 02/13/20 08:17 02/14/20 09:34 Humalog SC 6 unit TID-WM SOLEDAD Administration Iron/Minerals/Multivitamins 1 tab 02/10/20 09:00 02/14/20 09:32 Theragran M PO 1 tab DAILY SOLEDAD Administration Pantoprazole Sodium 40 mg 02/12/20 09:00 02/14/20 09:32 Protonix PO 40 mg DAILY SOLEDAD Administration Abiraterone Acetate 0 each 02/11/20 09:00 02/14/20 09:33 [Abiraterone Acetate PO 4 each ] 250 Mg DAILY SOLEDAD Administration Polyethylene Glycol 17 gm 02/10/20 09:00 02/14/20 09:32 Miralax PO 17 gm DAILY SOLEDAD Administration Prednisone 10 mg 02/12/20 08:00 02/14/20 09:31 Prednisone PO 10 mg QAM-WM SOLEDAD Administration Senna/Docusate Sodium 2 tab 02/11/20 09:00 02/14/20 09:32 Senokot S PO 2 tab BID SOLEDAD Administration Simvastatin 10 mg 02/10/20 21:00 02/13/20 20:54 Zocor PO 10 mg QPM SOLEDAD Administration Sodium Chloride 10 ml 02/10/20 05:48 02/11/20 20:35 Flush - Normal Saline IVF 10 ml PRN PRN Administration Saline Flush Sodium Chloride 10 ml 02/10/20 18:44 02/12/20 08:02 Normal Saline Pf FS 10 ml PRN PRN Administration RECONSTITUTION Tamsulosin HCl 0.4 mg 02/10/20 09:00 02/14/20 09:33 Flomax PO 0.4 mg DAILY SOLEDAD Administration - Exam General Appearance: awake alert, ill appearing Eye: PERRL, anicteric sclera ENT - other findings: fresh blood in oral cavity due to mucosal bleeding Heart: no murmur, no gallops, no rubs Heart - other findings: sinus tachycardia Respiratory: no wheezes, no ronchi, rales, tachypneic Respiratory - other findings: shallow breathing, unchanged Gastrointestinal - other findings: gross hematuria in rosales Extremities: 2+ LE edema Psychiatric: normal affect, normal behavior, oriented to person, oriented to place. negative: oriented to time Hosp A/P - Plan #dyspnea #bilateral moderate sized pleural effusions s/p right thoracentesis with improvement -patient had negative CTPE on presentation -with exception of mildly elevated AST, patient had normal albumin, alt, bili on presentation; mild hepatobiliary pattern developed while inpatient, possibly due to ischemic hepatopathy in context pulmonary vasocontriction -FPC of coagulopathy in prostate cancer is DIC; lab studies and exam findings c/ w DIC as well -echocardiography unremarkable, bnp mildly elevated; agree with GI may be component of right heart failure likely in context of subacute/chronic hypoxia; also c/w with presentation with JVD, which resolved after diuresis - informed PCCM of hemoptysis and blood in oral cavity, will transfuse platelets based on recs -DIC panel, H&H; will transfuse as indicated -even though most likely not cause of pleural effusion, sent PSA test in pleural fluid considering limited sensitivity of cytology based on reports of increased sensitivity with both tests -CXR stat -started spironolactone and lasix as per gastroenterology; in context of possible pulmonary HTN, should be careful to avoid significant reduction of preload #complicated UTI -UCx negative so far; if final negative, will DC antibiotics since UCx gold standard #metastatic prostate cancer -mild ascites on CT; abdomen distended, may be a factor in shallow breathing -evidence of metasteses to thoracic and lumbar spine with some compression fractures -oncology onboard -continue prednisone, zytiga per oncology #ascending aortic aneurysm -5cm in diameter -no evidence of dissection on CT with contrast -considering poor prognosis, no indication to follow or carry out preventive measures Code: DNAR per patient and who is surrogate DVT PPx: SCD GI PPx: on pantoprazole
[2020-02-14 11:09] LABS: Platelet Count 35 thou/uL (130-400)
[2020-02-14 11:14] LABS: Fibrinogen 228 mg/dL (253-463)
[2020-02-14 11:15] LABS: INR-International Normal Ratio 1.4; PTT 39.5 SEC (22.9-36.1)
--- NOTE | 2020-02-14 11:35 | RAD ---
CHEST 1 VIEW: Date: )02/14/2020 HISTORY: Hemoptysis. COMPARISON: Radiograph prior day. FINDINGS: Large bilateral pleural effusions with extension into the right major fissure. Heart size is enlarged . Worsening lower lobe aeration. No pneumothorax. IMPRESSION: 1. Slightly worsened lung aeration. 2. Diffuse osseous metastatic disease. POS: HOME
[2020-02-14 11:38] LABS: D-Dimer Test Greater than 20.00 *mcg/mL (0.27-0.43)
[2020-02-14 11:56] LABS: FSP-Qualitative ABNORMAL (Normal); FSP-Semiquantitative >=80 & <160 mcg/mL (Less than 5)
--- NOTE | 2020-02-14 12:19 | PQF ---
LAQUITATARA SNOWDENBETOPieter, DINORA [id number] [facility]- B11 [id number] CLINICAL DOCUMENTATION IMPROVEMENT CLARIFICATION FORM: ICD-10 Updated PLEASE DO AN ADDENDUM TO THE PROGRESS NOTE WITH ANY DOCUMENTATION UPDATES OR ADDITIONS AND CARRY THROUGH TO DC SUMMARY. THANK YOU. DATE: 02/14/2020 ATTN:DR. Stephen ARMIJO Please exercise your independent, professional judgment in responding to the clarification form. Clinical indicators are provided on the bottom of this form for your review. Please check appropriate box(s): CONGESTIVE HEART FAILURE: A. ACUITY [ x ] Acute [ ] Acute on Chronic [ ] Chronic B. TYPE [ ] Systolic / HFrEF [ ] Diastolic / HFpEF [ ] Combined Systolic / Diastolic [ ] Hypertensive Heart and Kidney disease [ ] Hypertensive Heart Disease [ ] Hypertensive Kidney Disease [ x ] Other diagnosis _ruled out [ ] Unable to determine In addition, please specify: Present on Admission (POA): [ x ] Yes [ ] No [ ] Unable to determine For continuity of documentation, please document condition throughout progress notes and discharge summary. Thank You. CLINICAL INDICATORS - SIGNS / SYMPTOMS / LABS / RESULTS AND LOCATION IN EMR BNP 187.3 02/08 ED REPORT : TRANSFER FOR SOB, RESPIRATORY EFFORT LABORED, SPEAKS IN SHORT PHRASES, PULSE 112, RR 32, 100% 4L/NC//PT REPORTS 3 DAYS OF DYSPNEA, PERIPHERAL EDEMA, SYMPTOMS EXACERBATED WHILE LYING FLAT. 02/08 EVENT NOTE (NANCY) PT NOTED TO HAVE BECOME PROGRESSIVELY MORE SHORT OF BREATH, AND TACHYPNEIC. GIVEN A DOSE OF LASIX EARLIER WITHOUT MUCH IMPROVEMENT. 02/10 PN (ALEKSANDER) A/P : PLEURAL EFFUSION DUE TO CONGESTIVE HEART FAILURE VS LUNG METS, THOUGH ONCOLOGY BELIEVES FORMER TO BE MORE LIKELY. 02/11 ECHO EF 60-65%, LT VENTRICULAR SIZE NORMAL, MILDLY ENLARGED RT VENTRICLE CAVITY, LT ATRIUM IS NORMAL SIZE, PLEURAL EFFUSION NOTED, 02/10 CONSULT (RAMAN) IMPRESSION: HIS BNP IS UNREMARKABLE, SO IT BECOMES LESS LIKELY THAT THIS IS HEART FAILURE. 02/12 CONSULT ( YASMIN) ASSESSMENT: I WOULD FAVOR A RIGHT SIDE HEART FAILURE OVER CIRRHOSIS BASED ON HIS ALBUMIN AND TOTAL PROTEIN LEVELS ALONE. 02/13 PN (BISHOP ) ASSESSMENT: HIS HEART APPEARS DILATED. FINDINGS FAVOR RT SIDED HEART FAILURE A CAUSE OF HIS PLEURAL EFFUSION AND PERIPHERAL EDEMA WITH ASCITES. HOWEVER CIRRHOSIS CANNOT BE DEFINITIVELY EXCLUDED. RISK: DYSPNEA, HYPOXIA IN CONTEXT OF PROSTATE CANCER W METS AND NEW BILATERAL PLEURAL EFFUSIONS, HX HTN (H&P/O'ALBINA) 02/08 TREATMENTS: LASIX IVP ( 02/08 - PRESENT) ECHO 02/11 SUPPLEMENTAL OXYGEN (02/08 - PRESENT) THANK YOU! DIANA (This form is maintained as a part of the permanent medical record) 2014 [employer], [employer]. All Rights Reserved [email or web address] [facility]
[2020-02-14 12:21] LABS: Hemoglobin 8.2 g/dL (14.0-18.0)
--- NOTE | 2020-02-14 13:28 | PDOC.PALCO ---
Palliative Care Consult - Consult Details Requesting Physician: Dr Moore Reason for Consult: goals of care, family support - Pertinent HPI 79 year old male who initially presented to the emergency room in [place] secondary to increase in shortness of breath. O2 dependent. Lives in private home setting with his . His symptoms increaser with activity and lying flat. Dry cough that is intermittent. Known history of prostate cancer with metastases, seen by Dr Laws and having radiation every three months. After evaluation in emergency room in [place] was transfered to [facility] and admitted for medical management and further evaluation. CT in [place] identified bilateral pleural effusions, osseous metastatic disease, 5 cm ascending aortic aneurysm. - Pertinent PMH Metastatic prostate cancer, hypertension - Social History Smoking Status: Never smoker Smoking: no tobacco exposure Alcohol Use: none Drug Use History: none Living Situation: independent, - Medications MAR Reviewed: Yes - Allergies Allergies/Adverse Reactions: Allergies Allergy/AdvReac Type Severity Reaction Status Date / Time No Known Drug Allergies Allergy Verified 02/09/20 22:23 - Subjective Sitting in chair by side of bed, bloody sputum, hematuria in [place]. Hard of hearing, weakness. - ROS Constitutional: weakness ENT: other (poor dentition, blood in oral cavity) Respiratory: hemoptysis, shortness of breath, other (cough) Cardiology: paroxysmal noc. dyspnea, orthopnea, other (negative for chest pain, palpitations) Gastrointestinal: other (negative for nausea, diarrhea, vomiting) Genitourinary: hematuria Neurological: other (denies numbness, dizziness) Skin: jaundice - Objective Vital Signs: Vital Signs - Most Recent Temp Pulse Resp BP Pulse Ox 97.0 F L 106 H 28 H 120/62 100 02/14/20 11:13 02/12/20 12:24 02/10/20 14:09 02/12/20 12:24 02/14/20 08:00 Palliative Performance Scale: 30 - Physical Exam Constitutional: ill appearing, mild distress HEENT: moist MMs Deviation from normal: bloody oral cavity Respiratory: diminished lung sound, labored respirations Deviation from normal: bloody sputum Cardiovascular: RRR Gastrointestinal: non-tender Genitourinary: rosales catheter Deviation from normal: henaturia Musculoskeletal: no cyanosis, edema present Neurology: moves all 4 limbs, no focal deficits Skin: fragile Deviation from normal: icteric - Problem List (1) Thrombocytopenia Code(s): D69.6 - THROMBOCYTOPENIA, UNSPECIFIED Current Visit: Yes Status: Acute (2) Pleural effusion Code(s): J90 - PLEURAL EFFUSION, NOT ELSEWHERE CLASSIFIED Current Visit: Yes Status: Acute (3) Palliative care encounter Code(s): Z51.5 - ENCOUNTER FOR PALLIATIVE CARE Current Visit: Yes Status: Acute (4) Physical deconditioning Code(s): R53.81 - OTHER MALAISE Current Visit: Yes Status: Acute (5) Metastatic adenocarcinoma to prostate Code(s): C79.82 - SECONDARY MALIGNANT NEOPLASM OF GENITAL ORGANS Current Visit : No Status: Acute (6) Type 2 diabetes mellitus Current Visit: No Status: Chronic - Plan/Recommendations Plan: Introduced Palliative Care to patient, confirmed DNAR status and Mark Tobias RN obtained OOHDNAR. Initiated conversation in relation to Goal of Care. Patient significantly fatigued. Mark Tobias RNdirector ehs to follow up with conversation with . Please refer to her notes in note section. [45] minutes spent on this encounter with >50% of the time in counseling and coordination of care. Thank you for this very appropriate consult.
[2020-02-14] MEDS: Furosemide 40 MG/4 ML VIAL SLOW IVP SCH (14:17)
--- NOTE | 2020-02-14 14:20 | EKG ---
Test Reason : CP Blood Pressure : / mmHG Vent. Rate : 109 BPM Atrial Rate : 109 BPM P-R Int : 154 ms QRS Dur : 124 ms QT Int : 366 ms P-R-T Axes : 041 059 040 degrees QTc Int : 492 ms Sinus tachycardia with Premature atrial complexes Right bundle branch block Septal infarct , age undetermined cannot be excluded Abnormal ECG Confirmed by OMA GANDHI ([id number]) on 02/14/2020 2:20:31 PM Referred By: MOMO Confirmed By:OMA GANDHI
--- NOTE | 2020-02-14 15:10 | PRG ---
DATE OF SERVICE: 02/14/2020 SUBJECTIVE: Kale Reeder had some hematuria today. He also coughed up some blood. His clinical condition is otherwise unchanged. OBJECTIVE: VITAL SIGNS: Heart rate is 108, blood pressure 120/67, respiratory rates in the 20s. INR is down to 1.4. LUNGS: Otherwise unchanged. HEART: Otherwise unchanged. ABDOMEN: Otherwise unchanged. Aldactone and Lasix have been ordered. Hemoglobin is 8.2. IMPRESSION: Coagulopathy secondary to hepatic dysfunction versus coagulopathy associated with his adenocarcinoma of his prostate. I discussed the above with Dr. Laws. At this point in time, we will withhold transfusion of platelet-rich plasma, and follow him clinically. Obviously, his prognosis is quite guarded. Job ID: [id number]
[2020-02-14 18:13] LABS: Hemoglobin 7.9 g/dL (14.0-18.0); Platelet Count 31 thou/uL (130-400)
[2020-02-14] MEDS: Simvastatin 20 MG TAB PO SCH (20:49)
[2020-02-14] MEDS: Insulin Glargine 7 UNITS in Pre-Filled Syringe SC SCH (20:50)
[2020-02-15] MEDS: cefTRIAXone\\ROCEPHIN 1 GM in Sodium Chloride 0.9% 100 ML IVPB SCH (00:19)
[2020-02-15] MEDS ORDERED: Insulin Glargine 14 UNITS in Pre-Filled Syringe 1 EACH SC SCH (04:30)
[2020-02-15] MEDS: Furosemide 40 MG/4 ML VIAL SLOW IVP SCH (05:33)
[2020-02-15] MEDS: HumaLOG 300 UNITS/3 ML VIAL SC PRN ×3 (05:37→12:37)
[2020-02-15 06:32] LABS: Magnesium 2.1 mg/dL (1.6-2.6); Potassium 4.4 mmol/L (3.5-5.1)
[2020-02-15 06:50] LABS: Hemoglobin 7.8 g/dL (14.0-18.0); Platelet Count 32 thou/uL (130-400)
--- NOTE | 2020-02-15 07:39 | EKG ---
Test Reason : Blood Pressure : / mmHG Vent. Rate : 095 BPM Atrial Rate : 095 BPM P-R Int : 166 ms QRS Dur : 134 ms QT Int : 374 ms P-R-T Axes : 029 037 002 degrees QTc Int : 469 ms Sinus rhythm with Premature atrial complexes Right bundle branch block Abnormal ECG No previous ECGs available Confirmed by ERMIAS ARRIETA, LA ([id number]) on 02/15/2020 7:39:23 AM Referred By: MOMO Confirmed By:LA MONSON MD
[2020-02-15] MEDS ORDERED: Spironolactone 100 MG TAB PO SCH (08:00)
[2020-02-15] MEDS ORDERED: Furosemide 40 MG/4 ML VIAL SLOW IVP SCH (09:00)
[2020-02-15] MEDS: Polyethylene Glycol 3350 17 GM Packet PO SCH (09:07)
[2020-02-15] MEDS: Senokot S 8.6-50 MG TAB PO SCH (09:08)
[2020-02-15] MEDS: predniSONE 20 MG TAB PO SCH (09:09)
[2020-02-15] MEDS: Tamsulosin HCl 0.4 MG CAP PO SCH (09:09)
[2020-02-15] MEDS: Multivitamin W/ Minerals 1 TAB PO SCH (09:09)
[2020-02-15] MEDS: HumaLOG 300 UNITS/3 ML VIAL SC SCH ×2 (09:12→14:51)
[2020-02-15] MEDS: ABIRATERONE ACETATE 250 MG PO SCH (09:14)
--- NOTE | 2020-02-15 09:50 | PDOC.HOSPP ---
- Subjective Encounter Date: 02/15/20 Encounter Time: 09:00 Subjective: no overnight events. This morning, still oral mucosal bleeding and hematuria but improved. This morning, complains of persistent shortness of breath. requests to go home. pending evaluation by hospice - Objective Vital Signs & Weight: Vital Signs (12 hours) Temp Pulse Ox 02/15/20 08:00 100 02/15/20 07:08 96.2 F L 02/15/20 04:00 98.6 F 02/15/20 03:50 98.6 F 02/15/20 00:00 98.8 F 02/14/20 23:34 99.0 F Weight Weight 193 lb 8 oz Most Recent Monitor Data Heart Rate from ECG 108 NIBP 121/62 NIBP BP-Mean 81 Respiration from ECG 21 SpO2 100 I&O: 02/14/20 02/15/20 02/16/20 06:59 06:59 06:59 Intake Total 2100 1450 Output Total 1125 1630 Balance 975 -180 Result Diagrams: 02/15/20 05:45 02/15/20 05:45 Additional Labs: Accuchecks 02/15/20 02/14/20 02/14/20 05:18 20:36 16:52 POC Glucose 235 H 309 H 338 H 02/14/20 10:52 POC Glucose 321 H Hospitalist ROS - Review of Systems Constitutional: denies: fever, chills, sweats, weakness, malaise, other Cardiovascular: denies: chest pain, palpitations, orthopnea, paroxysmal noc. dyspnea, edema, light headedness, other Gastrointestinal: denies: nausea, vomiting, abdominal pain, diarrhea, constipation, melena, hematochezia, other Genitourinary: denies: dysuria, frequency, incontinence, hematuria, retention, other - Medication Medications: Active Medications Generic Name Dose Route Start Last Admin Trade Name Freq PRN Reason Stop Dose Admin Acetaminophen 650 mg 02/11/20 18:21 02/13/20 20:54 Tylenol PO 650 mg Q6H PRN Administration Fever/Mild Pain (1-3) Guaifenesin/Codeine Phosphate 10 ml 02/10/20 05:00 02/13/20 00:02 Robitussin Ac PO 10 ml Q6H PRN Administration Cough Insulin Human Lispro 0 units 02/10/20 14:06 02/15/20 05:37 Humalog SC 3 units .MILD SLIDING SCALE PRN Administration Mild Correctional Scale Insulin Human Lispro 9 units 02/15/20 04:30 02/15/20 09:12 Humalog SC 9 unit TID-WM SOLEDAD Administration Iron/Minerals/Multivitamins 1 tab 02/10/20 09:00 02/15/20 09:09 Theragran M PO 1 tab DAILY SOLEDAD Administration Pantoprazole Sodium 40 mg 02/12/20 09:00 02/15/20 09:09 Protonix PO 40 mg DAILY SOLEDAD Administration Abiraterone Acetate 0 each 02/11/20 09:00 02/15/20 09:14 [Abiraterone Acetate PO 1 each ] 250 Mg DAILY SOLEDAD Administration Polyethylene Glycol 17 gm 02/10/20 09:00 02/15/20 09:07 Miralax PO 17 gm DAILY SOLEDAD Administration Prednisone 10 mg 02/12/20 08:00 02/15/20 09:09 Prednisone PO 10 mg QAM-WM SOLEDAD Administration Senna/Docusate Sodium 2 tab 02/11/20 09:00 02/15/20 09:08 Senokot S PO 2 tab BID SOLEDAD Administration Simvastatin 10 mg 02/10/20 21:00 02/14/20 20:49 Zocor PO 10 mg QPM SOLEDAD Administration Sodium Chloride 10 ml 02/10/20 05:48 02/15/20 05:34 Flush - Normal Saline IVF 10 ml PRN PRN Administration Saline Flush Sodium Chloride 10 ml 02/10/20 18:44 02/12/20 08:02 Normal Saline Pf FS 10 ml PRN PRN Administration RECONSTITUTION Spironolactone 100 mg 02/15/20 08:00 02/15/20 09:09 Aldactone PO 100 mg QAM-WM SOLEDAD Administration Tamsulosin HCl 0.4 mg 02/10/20 09:00 02/15/20 09:09 Flomax PO 0.4 mg DAILY SOLEDAD Administration - Exam General Appearance: ill appearing Eye: PERRL, anicteric sclera Neck: no JVD Heart: no murmur, no gallops, no rubs, normal peripheral pulses Heart - other findings: normal rhythm, tachycardia (unchanged) Respiratory: no wheezes, no ronchi Respiratory - other findings: b/l inspiratory bibasilar rales Gastrointestinal: soft, non-tender, normal bowel sounds, distended Extremities: 2+ LE edema Extremities - other findings: pitting, equal, to knee level, bilaterally Psychiatric: normal affect, normal behavior, oriented to person, oriented to place. negative: oriented to time Hosp A/P - Plan #dyspnea #hemoptysis #bilateral pleural effusions s/p right thoracentesis -improved after thoracentesis; remains tachypnic but saturates well on 2L NC -CXR shows as bilateral pleural effusions; on the right, extension into the major fissure (02/13) -pleural effusion transudative; may still be due to prostate mets though not common; attempted to send pleural PSA for increased sensitivity -echocardiography shows no left sided HF; tricuspid regurg velocity low therefore low probability of significant pulmonary hypertension resulting in right heart failure. EKG on presentation showed no signs of right or inferior ischemia; also appears that pleural effusions unresponsive to diuresis based on msot recent CXR, which is uncommon for effusions due to HF -liver dysfunction unlikley etiology; patient presented with minimal liver dysfunction based on labs; subsequent hepatopathy likely result of ischemia due to DIC or DILI; albumin levels normal on presentation -pending mineralcorticoid excess studies -Per palliative team, patient and decided transition to hospice care; requested that Dr. Laws be notified regarding change in goals of care -continue lasix and aldactone as per GI #DIC -present on presentation -likely due to metastatic cancer -oral mucosa bleeding, hemoptysis, hematuria; labs consistent with DIC -platelet transfusion canceled (02/13) after PCCM conversed with Dr. Laws -improved bleeding (02/14); HD stable, HgB stable Plan: Defer to heme/onc #complicated UTI (resolved) -UA strongly suggestive; UCx negative, UCx gold standard so stopped ABx #metastatic prostate cancer -mild ascites on CT; abdomen progressively distended (02/14), may be a factor in shallow breathing -evidence of metasteses to thoracic and lumbar spine with some compression fractures -oncology onboard -continue prednisone, zytiga per oncology #ascending aortic aneurysm -5cm in diameter -no evidence of dissection on CT with contrast -considering poor prognosis, no indication to follow or carry out preventive measures Code: DNAR per patient and who is surrogate; Palliative team conversed with patient and (02/13), who decided to transition to hospice DVT PPx: SCD GI PPx: on pantoprazole Poor prognosis. Patient pending hospice evaluation.
--- NOTE | 2020-02-15 10:13 | PDOC.MOPN ---
Interval History: fatigued, continued oozing of gums. + blood tinged urine - Vital Signs Vital Signs: Vital Signs (12 hours) Temp Pulse Ox 02/15/20 08:00 100 02/15/20 07:08 96.2 F L 02/15/20 04:00 98.6 F 02/15/20 03:50 98.6 F 02/15/20 00:00 98.8 F 02/14/20 23:34 99.0 F Weight Weight 193 lb 8 oz Most Recent Monitor Data Heart Rate from ECG 108 NIBP 121/62 NIBP BP-Mean 81 Respiration from ECG 21 SpO2 100 - Physical Exam General: Alert, Oriented x3, No acute distress HEENT: Atraumatic, PERRLA, EOMI, Mucous membr. moist/pink Lungs: Other Cardiovascular: Other (tachy) Abdomen: Soft Extremities: No edema Neurological: Normal speech - Labs Result Diagrams: 02/15/20 05:45 02/15/20 05:45 Lab results: Laboratory Results - last 24 hr 02/15/20 05:45: Hgb 7.8 L, Hct 23.4 L, Plt Count 32 L 02/15/20 05:45: Potassium 4.4, Magnesium 2.1 02/15/20 05:18: POC Glucose 235 H 02/14/20 20:36: POC Glucose 309 H 02/14/20 17:56: Hgb 7.9 L, Hct 23.6 L, Plt Count 31 L 02/14/20 16:52: POC Glucose 338 H 02/14/20 12:11: Blood Type A POSITIVE, Antibody Screen NEGATIVE 02/14/20 12:11: Hgb 8.2 L, Hct 25.0 L 02/14/20 10:52: POC Glucose 321 H 02/14/20 10:47: Plt Count 35 L, PT 17.0 H, INR 1.4, APTT 39.5 H, Fibrinogen 228 L, Fibrin Degrad Products ABNORMAL H, Fibrin Degrad Prod, Qt >=80 & <160 H, D- Dimer Greater than 20.00 H Status: lab reviewed by me A/P - Problem (1) Metastatic adenocarcinoma to prostate Current Visit: No Code(s): C79.82 - SECONDARY MALIGNANT NEOPLASM OF GENITAL ORGANS Status: Acute - Plan Plan: patient and discussing hospice He did not understand that treatment for prostate would stop if he is on hospice plan to discuss further with spouse monitor CBC discussed with Dr. gonzalez and Dr. Jean
[2020-02-15 12:13] VITALS: BP 117/89
--- NOTE | 2020-02-15 12:28 | PRG ---
DATE OF SERVICE: 02/15/2020 REASON FOR CONSULTATION: Pancytopenia with thrombocytopenia concerning for cirrhosis/liver pathology, mild minimal ascites on imaging. SUBJECTIVE: The patient was resting in bed comfortably at the time of this interview, although he did exhibit caked blood in his mouth and on his hands. Per nursing staff, he has continued coughing episodes of hemoptysis, but no overt hematemesis. On further questioning of the patient, he has not had any episodes of melena or hematochezia, and denies any nausea, vomiting, fevers, chills, or abdominal pain. PHYSICAL EXAMINATION: VITAL SIGNS: Temperature 96.2, pulse 115, blood pressure 91/67, respiratory rate 30, and saturating 100% on room air. GENERAL: The patient was lying in bed, in no acute distress. Mild conversational dyspnea. CARDIOVASCULAR: Regular rate and rhythm. RESPIRATORY: Diminished breath sounds auscultated in the bilateral lower lung bases. No discernible wheezes or rales. ABDOMEN: Normoactive bowel sounds. Soft, nontender, nondistended. EXTREMITIES: 1+/2+ bilateral lower extremity edema extending to mid pedersen. LABORATORY DATA: Hemoglobin 7.8, hematocrit 23.4. COVID-19 virus negative. IMAGING DATA: No current GI imaging is available for review. ASSESSMENT AND PLAN: 1. Bilateral transudative pleural effusions with negative cytology. At this time, the patient initially presented with large bilateral pleural effusions with thoracentesis yielding a more transudative type effusion. Given the presence of this effusion and minimal ascites, there was some concern for cirrhosis of the liver. However, the ascites on imaging appears to be very minimal and noncontributory to a possible hepatic hydrothorax type picture. However, upon further evaluation of his imaging, there is moderate dilation of the inferior vena cava suggesting right heart failure that could be contributing to both his lower extremity edema, pleural effusion, and mild elevation in LFTs. 2. Coagulopathy. Upon review of the patient's labs, he has a significant elevation in his INR as well as derangement in his fibrinogen degradation products actually more consistent with a DIC type picture. As to the causative mechanism for his DIC, he does have a probable urinary tract infection that could contribute but also with his underlying metastatic prostate cancer, it could also contribute to this finding as well. His INR is currently downtrending with appropriate antibiotic treatment, making a possible urosepsis/DIC picture more likely but cannot necessarily exclude malignancy at this time. 3. Pancytopenia, most likely due to either metastatic prostate cancer or disseminated intravascular coagulation. 4. Metastatic prostate cancer with osseous involvement. RECOMMENDATIONS: 1. At this time, the patient does not have any clear evidence of cirrhosis of the liver but more indicative of either DIC or right heart failure type process with no further GI workup indicated at this time. 2. Discharging the patient to hospice given failure of his current treatment for prostate cancer is a very reasonable option. 3. We will continue low-salt diet for the time being given the fusion/ascites formation. 4. Would defer diuretic management to hospice physician, but we will consider continuing the furosemide 40 mg b.i.d. We will sign off at this time. Please call with any questions. Job ID: [id number]
--- NOTE | 2020-02-15 15:06 | PRG ---
DATE OF SERVICE: 02/15/2020 DISCUSSION: Kale Reeder looks a little more fatigued every day. His heart rate is 104, blood pressure 122/62, respiratory rate is in the 20s, oximetry is 100%. Overall, he is unchanged, but apparently going home with hospice. His hemoglobin is 7.8 today. Potassium is 4.4. Glucose is elevated. IMPRESSION: 1. Diastolic dysfunction. 2. Hepatic dysfunction. 3. Metastatic prostate cancer. 4. Coagulopathy, which may be related to his prostate cancer. We will sign off. Job ID: [id number]
[2020-02-15 15:13] VITALS: TEMP 96.9
--- NOTE | 2020-02-16 12:08 | DIS ---
DATE OF ADMISSION: 02/09/2020 DATE OF DISCHARGE: 02/15/2020 HISTORY OF PRESENT ILLNESS: Mr. 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 The patient was diagnosed with bilateral pleural effusions, DIC, and ascending aortic aneurysm. HOSPITAL COURSE: 1. Bilateral pleural effusions. The patient had a right thoracentesis from which 1 L of serous fluid was removed. Studies were consistent with a transudate. Cytology was negative for malignant cells. The patient significantly improved in terms of oxygen requirements, status post thoracentesis; however, remained tachypneic, on 2 L of nasal cannula. Echocardiography showed no left-sided heart failure. Tricuspid regurg velocity was low, therefore low probability for significant pulmonary hypertension resulting in right heart failure. EKG on presentation showed no signs of ischemia. Pleural effusions were unresponsive to diuresis based on most recent chest x-ray, which is uncommon for effusions due to heart failure. Liver dysfunction occurred after the patient was admitted. Subsequent hepatopathy was likely a result of ischemia due to DIC or drug-induced liver injury because of the patient's chemo. Albumin levels were normal on presentation. Therefore, hepatopathy unlikely etiology for pleural effusions. Pleural effusions possibly due to mineral corticoid excess due to Zytiga and other chemotherapy. Studies were pending. On the day of discharge. Prior to discharge, repeat chest x-ray was carried out, in which the x-ray was reported to have bilateral large pleural effusions. Palliative Team had a conversation with the patient and his , and they decided to transition to hospice care without further aggressive treatment. However, on the morning of discharge, the patient exhibited confusion and said that he was going to continue treatment. Palliative Team clarified disposition with the oncology service the day prior to discharge. In addition to that, the board writer of this note discussed the meaning of hospice care with the and clarified that they will not pursue additional aggressive treatment based on her and 's wishes, which per the patient was clear about prior to the patient getting confused. However, I did notify the that she can choose to revert back to aggressive treatment at any time if she or the patient choose to do so. Per Gastroenterology Team, the patient was started on Lasix 40 mg and Aldactone. 2. DIC. The patient had DIC on presentation, had hematuria as well as reported hemoptysis and melena. Likely due to metastatic prostate cancer, during inpatient stay, the patient also had oral mucosal bleeding, hemoptysis, hematuria, and labs that were consistent with DIC. The patient had transfusion of platelets initially, and bleeding has improved. However, after conversation with critical care physician, with Dr. Laws, the patient's oncologist, additional platelet transfusions were not given. On the day of discharge, bleeding was improved. He was hemodynamically stable and hemoglobin was stable as well. 3. Metastatic prostate cancer. CT of the abdomen showed mild ascites, progressively distended abdomen, which may be a factor in his shallow breathing and dyspnea. There was also evidence of metastasis to the thoracic and lumbar spine with some compression fractures. Per Oncology, continued the patient on prednisone and Zytiga as an inpatient. Discontinued Zytiga based on the patient's and 's request on discharge and transition to hospice. 4. Ascending aortic aneurysm. It was found on CT, 5 cm in diameter. Considering transition to hospice, there was no indication to follow, carry out preventive measures. Code status was changed to DNAR as an inpatient per the patient's and 's requests, and the form was signed for outpatient DNAR. PHYSICAL EXAMINATION: VITAL SIGNS: Blood pressure 117/89, pulse was 88, respiratory rate was in the mid 20s. On 2 L nasal cannula, he was saturating 100%. The patient was discharged home with home oxygen. GENERAL APPEARANCE: He is ill-appearing. EYES: PERRL. Anicteric sclerae. NECK: No JVD. HEART: No murmur, no gallops, no rubs. Normal rhythm. Mild tachycardia in the 100. RESPIRATORY: No wheezes or rhonchi. Bilateral inspiratory bibasilar rales were present. GI: Soft, nontender, nondistended. Normal bowel sounds. EXTREMITIES: 2+ lower extremity pitting edema up to knee level, equal. PSYCHIATRIC: Normal affect, normal behavior. Oriented to person and to place, but not to time. DISCHARGE MEDICATIONS: New medications: 1. Spironolactone. 2. Lasix. Continued medications: 1. Multivitamin. 2. Lactobacillus. 3. Tamsulosin. 4. Metformin. 5. MiraLAX. 6. Prednisone. 7. Acetaminophen. Discontinued medications: 1. Simvastatin. 2. Ibuprofen. 3. Abiraterone acetate. Job ID: [id number] [facility]
--- NOTE | 2020-02-27 00:18 | PQF ---
TARA COELHO LUPE SNOWDENLUCA, DINORA [id number] [facility]- [id number] CLINICAL DOCUMENTATION CLARIFICATION FORM: POST DISCHARGE Addendum to original discharge summary date: ____ Late entry note date: __ DATE: ATTN: DINORA ARMIJO Please exercise your independent, professional judgment in responding to the clarification form. Clinical indicators are provided on the bottom of this form for your review Kindly clarify the Diagnosis Occasion on Admission: [ x ] Bilateral Pleural effusion [ x ] Disseminated intravascular coagulation [x ] Ascending aortic aneurysm Coding guidelines require hospitals to identify whether a diagnosis was present on admission (POA) or not. To accurately assign the appropriate POA indicator, this information must be clearly documented within the medical record. CLINICAL INDICATORS - SIGNS / SYMPTOMS / LABS -The patient was diagnosed with bilateral pleural effusions, DIC and Ascending aortic aneurysm- DS, 02/14, DINORA ARMIJO - SOB, Worsening dyspnea- ED record, 02/08, Marvel Baker MD - He was also noted to have thrombocytopenia with platelet count of 27- H&P, , O Farhan Dulce Maria - Dyspnea, hypoxia in the context of prostate cancer with metastases and new bilateral effusions and ascites-H&P, 02/08, O Farhan Dulce Maria - mild progressively distended abdomen, which may be a factor in his shallow breathing and dyspnea-H&P, 02/08, O Farhan Dulce Maria RISK FACTORS: - Metastatic prostate cancer- DS, 02/14, DINORA ARMIJO - Ascending aortic aneurysm- DS, 02/14, DINORA ARMIJO TREATMENT: - Right thoracentesis-OP report, 02/13 - Leuk-redu pheresis [id number], 02/09 (This form is maintained as a part of the permanent medical record) [employer] Professor [email or web address] [id number]. All Rights Reserved Verna RYAN
== END 2020-02-15 16:00 | disposition hospice, home (50) | DRG 813 ==
LOC: ERS 15:21 → T4-B 16:25 → IMCU/EMU 02-10 06:05
PROVIDERS: ADMIT Internal Medicine; ATTEND Internal Medicine
PROC: 8E0ZXY6 Isolation (ICD-10-PCS; principal; 2020-02-09)
PROC: 30233R1 Transfusion of Nonautologous Platelets into Peripheral Vein, Percutaneous Approach (ICD-10-PCS; 2020-02-10)
PROC: 30233N1 Transfusion of Nonautologous Red Blood Cells into Peripheral Vein, Percutaneous Approach (ICD-10-PCS; 2020-02-10)
PROC: 0W993ZZ Drainage of Right Pleural Cavity, Percutaneous Approach (ICD-10-PCS; 2020-02-11)
DX: D65 Disseminated intravascular coagulation [defibrination syndrome] (principal); J90 Pleural effusion, not elsewhere classified; E87.1 Hypo-osmolality and hyponatremia; R18.8 Other ascites; C79.51 Secondary malignant neoplasm of bone; E27.40 Unspecified adrenocortical insufficiency; N39.0 Urinary tract infection, site not specified; R04.2 Hemoptysis; C61 Malignant neoplasm of prostate; D64.9 Anemia, unspecified; I71.4 Abdominal aortic aneurysm, without rupture; K74.60 Unspecified cirrhosis of liver; Z51.5 Encounter for palliative care; I10 Essential (primary) hypertension
CPT/HCPCS: 36415; 36416; 36430; 71045; 76705; 80048; 80053; 80074; 80076; 81001; 82088; 82150; 82533; 82607; 82728; 82746; 82945; 83540; 83550; 83615; 83735; 83880; 83930; 83935; 84132; 84145; 84153; 84157; 84244; 84300; 84484; 85014; 85018; 85025; 85046; 85049; 85060; 85300; 85362; 85379; 85384; 85610; 85730; 86850; 86900; 86901; 87040; 87070; 87086; 87205; 87633; 87635; 88112; 88305; 89051; 93005; 93010; 93306; 93970; C9113; J0696; J1815; J1940; J3490; J7512; P9016; P9035; U0002